=== PATIENT | female | born 1945 | race Caucasian/White ===

== ENCOUNTER 2016-10-05 01:02 | Inpatient (IN) ==
[2016-10-05] MEDS ORDERED: NS 1,000 ML IV ONE (01:09)
[2016-10-05] MEDS ORDERED: PROTONIX IV ONE (01:25)
[2016-10-05] MEDS ORDERED: SODIUM CHLORIDE 0.9% INJ ONE ×2 (01:25→13:01)
[2016-10-05 01:54] LABS: BASO% 0.7 % (0.0-0.8); EOS# 0.06 X1000 (0.0-0.7); HEMATOCRIT 26.8 % (37.0-47.0); HEMOGLOBIN 7.8 g/dL (12.0-16.0); LYMPH# 1.24 X1000 (1.2-3.4); LYMPH% 20.8 % (20.5-51.1); MANUAL DIFF NEEDED? NO; MCH 24.5 PG (27-31); MCHC 29.1 g/dL (33-37); MONO# 0.62 X1000 (0.11-0.59); MONO% 10.4 % (1.7-9.3); MPV 10.4 FL (7.4-10.4); NEUT% 67.1 % (42.2-75.2); PLT 525 X1000 (130-400); RBC 3.19 XMIL (4.2-5.4)
[2016-10-05 01:58] LABS: INR 1.05; PROTIME 11.1 Seconds (9.2-11.7)
--- NOTE | 2016-10-05 02:03 | PROVIDER DOCUMENTATION ---
This chart was entered by Zuleyma Vizcaino Scribe, acting as scribe for Tha Bertrand PA. HPI-Abdominal Pain/GI Problem - General Stated Complaint: lower gib Time Seen by Provider: 10/05/16 01:18 Source: patient, family, EMS Allergies/Adverse Reactions: Patient Allergies Allergy/AdvReac Type Severity Reaction Status Date / Time anti inflammatories AdvReac Unknown Uncoded 09/20/13 15:18 Home Medications: Home Medication List Medication Instructions Recorded Confirmed Last Taken Type Butalb/Acetaminophen/Caffeine 1 tab PO DAILY 09/20/13 09/20/13 09/20/13 07:00 History [Cczusa-Juwvjyyl-Rvgq 50-300-40] Carisoprodol 350 mg PO TID 09/20/13 09/20/13 09/20/13 07:00 History Clonazepam 0.5 mg PO TID 09/20/13 09/20/13 09/20/13 07:00 History Duloxetine HCl 60 mg PO DAILY 09/20/13 09/20/13 09/20/13 07:00 History Fluoxetine HCl 40 mg PO DAILY 09/20/13 09/20/13 09/20/13 07:00 History Frovatriptan [Frova] 1 tab PO DAILY 09/20/13 09/20/13 09/20/13 07:00 History Hydrocodone Bit/Acetaminophen 1 each PO PRN PRN 09/20/13 09/20/13 09/20/13 07: 00 History [Hydrocodon-Acetaminoph 7.5-325] Hydrocodone Bit/Acetaminophen 1 tab PO TID 09/20/13 09/20/13 09/20/13 07:00 History [Hydrocodon-Acetaminoph 7.5-325] Levothyroxine [Synthroid] 200 microgm PO DAILY 09/20/13 09/20/13 09/20/13 07:00 History Lidocaine 5% Patch [Lidoderm] 1 patch TD BID 09/20/13 09/20/13 09/20/13 07:00 History Lubiprostone [Amitiza] 8 mcg PO DAILY 09/20/13 09/20/13 09/20/13 07:00 History Meclizine HCl [Antivert] 25 mg PO TID 09/20/13 09/20/13 09/20/13 07:00 History Mirabegron [Myrbetriq] 50 mg PO DAILY 09/20/13 09/20/13 09/20/13 07:00 History [place]-3 Fatty Acids/Fish Oil 1 each PO DAILY 09/20/13 09/20/13 09/20/13 07:00 History [[place] 3 1,000 mg Softgel] Omeprazole [Prilosec] 20 mg PO DAILY@0700 09/20/13 09/20/13 09/20/13 07:00 History Promethazine [Phenergan] 25 mg PO Q6H PRN PRN 09/20/13 09/20/13 09/20/13 07:00 History Propranolol HCl 0 mg PO DAILY 09/20/13 09/20/13 09/20/13 07:00 History ROSUVAstatin [Crestor] 20 mg PO DAILY 09/20/13 09/20/13 09/20/13 07:00 History Trazodone HCl 150 mg PO QHS 09/20/13 09/20/13 09/19/13 22:00 History Zolpidem [Ambien] 1 tab PO DAILY 09/20/13 09/20/13 09/20/13 07:00 History - History of Present Illness-ABD Nature of Presenting Problems: 71 Y/O F Presents to ED with GI Bleed. Pt was renan in by EMS this evening with a pressure of 70/30 pale. Pt has a hx of intestinal bleeding, never had a hx of rectal bleeding. Pt was seen by 2 days ago for colonoscopy. Pt had a large cecal AVM and they elected to not treat outpatient referred to [facility] for surgery. Pt today began to pass bright red blood rectally and on arrival to ED had a B/P of 40/20 and unresponsive pt given 2 bags of fluid. Pt then upon reassessment was alert and able to talk. Abdominal Pain Onset Location: reports: generalized abdomen Pain Radiation: reports: no radiation Severity in ED: reports: severe Onset/Duration: reports: this evening Timing: reports: still present Activities at Onset: reports: light activity Dark Stools Present?: reports: bright red blood Rectal Bleeding: reports: bleeding without stool Review of Systems - Adult - REVIEW OF SYSTEMS - ADULT Constitutional: denies: chills, fever Eyes: reports: no symptoms reported Ears, Nose, Mouth & Throat: reports: no symptoms reported Cardiovascular: reports: no symptoms reported Respiratory: reports: no symptoms reported Gastrointestinal: reports: rectal bleeding. denies: diarrhea, nausea Genitourinary: reports: no symptoms reported Musculoskeletal: denies: bone pain, back pain Integumentary: reports: no symptoms reported Neurological: denies: dizziness/vertigo, headache/migraines Psychiatric: reports: no symptoms reported Endocrine: reports: no symptoms reported Hematologic/Lymphatic: reports: no symptoms reported Allergic/Immunologic: reports: no symptoms reported All Other Systems: Reviewed and Negative Past History - Adult - PAST MEDICAL HISTORY-ADULT Review of Records: reports: Old Records Reviewed, Nursing Assessment Review, Medications Reviewed, Social history reviewed & non-contributory. Cardiovascular: reports: hyperlipidemia Respiratory: reports: COPD Gastrointestinal: reports: GERD, GI bleed Musculoskeletal: reports: chronic pain (neck and back) Neurological: reports: CVA, headaches/migraines Endocrine/Immune: reports: thyroid disorder Other Conditions: reports: other (sleep apnea, fibromyalgia, colitis) - PRIOR SURGERIES/PROCEDURES Surgical/Procedure History: reports: appendectomy, hysterectomy, BTL - IMMUNIZATION STATUS Childhood Immunizations: See Nurse Assessment Flu Vaccine: See Nurse Assessment - FAMILY HISTORY Family History: reviewed, not pertinent Physical Exam-General - CONSTITUTIONAL General Appearance: severe distress, cachetic - EYES Eyes: pale conjunctivae - NECK Neck: non-tender - RESPIRATORY Respiratory: lungs clear - MUSCULOSKELETAL Extremity: non-tender - SKIN Integumentary: negative: normal color Progress - PLAN OF CARE/RESULTS Progress/Plan/Lab Results: Orders Category Date Time Status Saline Loc NOW Care 10/05/16 01:09 Active Transfuse .Give-Transfuse Care 10/05/16 01:18 Active CBC WITH ELECTRONIC DIFF [HEME] Stat Lab 10/05/16 01:09 Uncollected COMPREHENSIVE METABOLIC PANEL [CHEM] Stat Lab 10/05/16 01:09 Uncollected LRPC (RED CELLS) [BBK] Stat Lab 10/05/16 01:18 Uncollected MAGNESIUM [CHEM] Stat Lab 10/05/16 01:09 Uncollected PROTIME WITH INR [COAG] Stat Lab 10/05/16 01:09 Ordered PTT [COAG] Stat Lab 10/05/16 01:09 Ordered TYPE & SCREEN [BBK] Stat Lab 10/05/16 01:09 Uncollected 0.9% Sodium Chloride Inj [Ns] 1,000 ml Med 10/05/16 01:09 Active IV 999 mls/hr Pantoprazole [Protonix] Med 10/05/16 01:25 Discontinued 40 mg IV NOW ONE Sodium Chloride 0.9% Med 10/05/16 01:25 Discontinued 10 ml INJ NOW ONE Dr. Momin at bedside. Reviewed case and agrees c all orders and plan of care. Result Diagrams: 10/05/16 01:05 - CONSULTS/PCP/HOSPITALIST Notification #1 *Consult/PCP/Hospitalist*: Dr. Ktaty Sommer Discussed: 01:25 Consult Disposition: other (Give 4 units of emergency blood; call surgery) #2 Consult: Dr. Ag Sommer Discussed: 02:00 Consult Disposition: Will see in ED (Dr. Luong - give 2 units FFP, 1 unit plasm - he is on the way to ED) Departure - Departure Date of Disposition Decision: 10/05/16 Time of Disposition Decision: 02:04 DIAGNOSIS: GI bleed Qualifiers: GI bleed type/associated pathology: unspecified gastrointestinal hemorrhage type Qualified Code(s): K92.2 - Gastrointestinal hemorrhage, unspecified Disposition: ADMITTED INPATIENT 09 Certified Medical Emergency: Emergent Condition: Stable Referrals and Follow-Ups: None,PCP [Primary Care Provider] - - Critical Care Note This patient required my direct & personal management of CC.: Yes Total Time (mins): 60 (Emergency blood; GI bleed) Critical Care Statement: This patient required my direct personal management to treat or rule out processes, the absence of which, could potentiallly result in sudden, clinically significant life or limb threatening deterioration. Attestation - Physician/ CHRIS Attestation Patient care was provided by Advanced Practice Provider:: Yes Advanced Practice Provider:: Tha Bertrand Advanced Practice Provider documentation review:: The Mid-level provider documentation, treatment plan and medical decision making was reviewed by the physician who agrees with all treatment and medical decision making by the MLP. The physician spent face to face time with patient:: Yes Advanced Practice Provider documentation review:: The physician spent face to face time with this patient and agrees with all MLP documentation, treatment, and medical decision making by the MLP. See provider notes for further information. This chart was documented by the indicated scribe, (Zuleyma Vizcaino, Sagar) and accurately reflects the services I performed and decisions made by , Tha Bertrand PA, as attested by the provider's signature.
[2016-10-05] MEDS ORDERED: NS 500 ML ONE (02:21)
[2016-10-05 02:50] LABS: AGAP 15; ALBUMIN 3.4 g/dL (3.5-5.0); ALKALINE PHOSPHATASE 70 U/L (32-104); BUN 5 mg/dL (8-22); CALCIUM 8.3 mg/dL (8.8-10.2); CHLORIDE 97 mmol/L (98-107); COSMO 269; GOT 23 U/L (10-30); GPT 18 U/L (10-36); MAGNESIUM 1.8 mg/dL (1.5-2.7); POTASSIUM 4.2 mmol/L (3.5-5.1); SODIUM 134 mmol/L (136-145); TCO2 22 mmol/L (25-35); TOTAL BILIRUBIN 0.11 mg/dL (0.20-1.00); TOTAL PROTEIN 5.5 g/dL (6.3-8.3)
[2016-10-05] MEDS ORDERED: INVANZ 1 GM/NS 1 GM/50 ML IVPB IV ONE (03:01)
[2016-10-05] MEDS ORDERED: QUELICIN (DOSE) ONE (03:42)
[2016-10-05] MEDS ORDERED: NORCURON ONE (03:42)
[2016-10-05] MEDS ORDERED: XYLOCAINE-MPF 2% ONE (03:42)
[2016-10-05] MEDS ORDERED: SODIUM CHLORIDE 0.9% 30 ML ONE (03:42)
[2016-10-05] MEDS ORDERED: ROBINUL ONE ×2 (03:42→05:11)
[2016-10-05] MEDS ORDERED: DIPRIVAN 1% ONE (03:43)
[2016-10-05] MEDS ORDERED: FENTANYL ONE (03:43)
[2016-10-05] MEDS ORDERED: NEO-SYNEPHRINE ONE (03:46)
[2016-10-05 04:44] LABS: URINE CULTURE NEEDED? NO; URINE SOURCE CATH
[2016-10-05] MEDS ORDERED: OFIRMEV 1000 MG/ISOTONIC SOLN 1,000 MG/100 ML BOTTLE ONE (04:47)
[2016-10-05] MEDS ORDERED: EPHEDRINE ONE (04:51)
[2016-10-05 04:53] LABS: BILIRUBIN URINE NEGATIVE (NEGATIVE); BLOOD URINE NEGATIVE (NEGATIVE); COLOR YELLOW; GLUCOSE URINE NEGATIVE (NEGATIVE); LEUKOCYTES URINE NEGATIVE (NEGATIVE); NITRITE URINE NEGATIVE (NEGATIVE); PROTEIN URINE 70 mg/dL (NEGATIVE); SP GRAVITY URINE 1.015; TURBIDITY URINE CLEAR (CLEAR); UROBILINOGEN URINE NORMAL (NORMAL)
[2016-10-05 04:54] LABS: URINE MICRO REVIEW NEEDED? YES
[2016-10-05] MEDS ORDERED: ZOFRAN ONE (05:07)
[2016-10-05] MEDS ORDERED: NEOSTIGMINE ONE (05:10)
[2016-10-05 05:14] LABS: UR EPITHELIAL CELLS >10 /HPF (<10); URINE BACTERIA NEGATIVE /HPF; URINE RBC <10 /HPF (<10); URINE WBC <10 /HPF (<10)
[2016-10-05] MEDS: DILAUDID ONE ×2 (06:12→06:25)
[2016-10-05] MEDS ORDERED: DILAUDID ONE (06:37)
[2016-10-05] MEDS ORDERED: LR 1,000 ML ONE (06:40)
[2016-10-05] MEDS ORDERED: LR 1,000 ML IV ONE (07:24)
[2016-10-05] MEDS ORDERED: PROTONIX PO ONE (07:24)
--- NOTE | 2016-10-05 07:34 | OPERATIVE NOTE ---
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 POSTOPERATIVE DIAGNOSIS: Lower gastrointestinal bleed secondary to colon arteriovenous malformation. PROCEDURE PERFORMED: Exploratory laparotomy with right hemicolectomy. COMPLICATIONS: None. ESTIMATED BLOOD LOSS: 50 mL. SPECIMENS: Right colon. INDICATION: A 71-year-old female who has had a history of recurrent lower GI bleeds. She was scoped by Dr. Alaniz on Tuesday, that showed several cecal AVMs that were not amenable to endoscopic therapy. She was referred to [facility]. However, had a massive lower GI bleed today with hemodynamic instability and syncope, prompting her admission. She was transfused 4 units of blood and 3 units of FFP in the emergency department. OPERATIVE FINDINGS: There was an ulceration with some nodularity in the cecum. This likely corresponds to the AVM previously noted or possibly cautery artifact. There were no other colon or small bowel lesions. There was a cystic lesion of the right adnexa that did not appear to have any solid components and was not adherent to any other structures, and felt to be a benign ovarian cyst. Liver was normal. Gallbladder was normal. Appendix and uterus were surgically absent. No significant intraabdominal adhesions. OPERATIVE NOTE: Risks, benefits, and alternatives were discussed with the patient and her son. She consented to the procedure. She was taken to the operating room, placed in the supine position. General anesthesia was induced. All bony prominence were padded. Her abdomen was prepped with chlorhexidine solution, and draped in the usual fashion. Shaw catheter was already placed in the emergency department. We did place an orogastric tube. After her abdomen was prepped and draped, we made a time-out and confirmed the patient and the procedure. We made a midline incision, carried this down through the subcutaneous fat with electrocautery, and through the fascia. We elevated the posterior sheath and peritoneum with Kellys, and entered the abdomen in an open controlled fashion, protecting the underlying structures. We extended the incision both cephalad and inferiorly to gain wide exposure. We inspected the abdomen. There were the above-mentioned findings. We placed a Bookwalter self-retaining retractor, mobilized the right colon along the white line, up to and around the hepatic flexure. We did mobilize the greater omentum off the proximal transverse colon. After having widely mobilized the colon to protect the duodenum and the other retroperitoneal structures, including the ureter, during this, we selected a portion to divide the terminal ileum, and did this with a DARIAN blue load stapler. Then using the LigaSure device, we took the mesentery up to the planned distal transection point. This was distal to the hepatic flexure. We did ligate what appeared to be the right branch of the middle colic, but the middle colic was still intact and well perfused to the transverse colon. We transected the colon distally, and passed this off. At this point, we used the opportunity to inspect the retroperitoneum. Hemostasis was confirmed. We then created a [id number] functional end-to-end anastomosis with a DARIAN blue load 80 mm stapler. We removed the staple line corners, and along the tenia and the antimesenteric portion of the small bowel, we made a common enterotomy, and then closed this enterotomy after inspecting and confirming hemostasis of the staple line with a second firing of the DARIAN 80 completely closing this. We then imbricated the corners of the staple line. There was good bleeding noted on cutting of the small bowel and the colon, consistent with more perfused proximal and distal aspect of our anastomosis. We then closed the mesenteric defect with a running 3-0 Vicryl suture. We ensured there was no twisting of the small bowel again. We did this both before and after creating the anastomosis. We placed this back in the right lower quadrant, irrigated the abdomen, placed omentum over the anastomosis and underneath the fascia, and closed the fascia with #1 looped PDS, irrigated the superficial wound. We did protect the fascia and the wound with laps prior to making our enterotomies and colotomies, and there was no significant spillage of succus. We changed gloves prior to fascial closure. At the end, we irrigated the superficial wound, closed the skin loosely with clarence. Counts correct x2. A gauze and Medipore tape dressing was applied. We removed her NG tube, kept the Shaw. I spoke with the family. Plan to admit her to step-down. She was hemodynamically stable throughout the case, and did not require any pressors or further blood transfusion. Will check labs postoperatively, and transfuse as necessary. cc: MD JIMENEZ Garcia
[2016-10-05 08:12] LABS: BASO% 0.2 % (0.0-0.8); HEMATOCRIT 33.8 % (37.0-47.0); HEMOGLOBIN 10.7 g/dL (12.0-16.0); IMM GRAN# 0.02 X1000 (0.0-0.04); IMM GRAN% 0.2 % (0.0-0.5); LYMPH# 0.54 X1000 (1.2-3.4); LYMPH% 4.4 % (20.5-51.1); MANUAL DIFF NEEDED? NO; MCH 26.4 PG (27-31); MCHC 31.7 g/dL (33-37); MCV 83.5 FL (81-99); MONO# 0.57 X1000 (0.11-0.59); MONO% 4.6 % (1.7-9.3); NEUT% 90.6 % (42.2-75.2); PLT 375 X1000 (130-400); RBC 4.05 XMIL (4.2-5.4)
[2016-10-05 08:16] LABS: INR 1.03; PROTIME 10.8 Seconds (9.2-11.7)
[2016-10-05 08:17] LABS: AGAP 10; BUN 6 mg/dL (8-22); CALCIUM 7.3 mg/dL (8.8-10.2); CHLORIDE 102 mmol/L (98-107); COSMO 269; POTASSIUM 4.2 mmol/L (3.5-5.1); SODIUM 134 mmol/L (136-145); TCO2 22 mmol/L (25-35)
--- NOTE | 2016-10-05 08:38 | HISTORY AND PHYSICAL ---
DATE OF CONSULTATION: 10/05/2016 HISTORY OF PRESENT ILLNESS: This 71 year old female has had multiple medical issues. She presents with a massive lower GI bleed, syncope and hemodynamic instability. She was started on mass resuscitation protocol given 4 units of packed red blood cells in the Emergency Department with some improvement in her mental status, cerebral perfusion and hemodynamics. She states that she underwent a colonoscopy with Dr. Alaniz on Tuesday that showed large right colon and cecal AVM's that he felt were not amenable to endoscopic management at that point, but he had referred to [facility] where she had not had an appointment made as of yet. She was feeling okay on a liquid diet until this happened. She was brought by EMS to the emergency department where she was found to be hypotensive with systolics in 30s to 40s. She is getting 4 units of blood and systolics improved to 90s and her color improved. MEDICAL HISTORY: She has a history of a stroke with left-sided weakness, chronically uses a walker, and migraine headaches. She also has a history of anemia and osteopenia. SURGICAL HISTORY: She has had a hysterectomy and cervical spine operation. SOCIAL HISTORY: No tobacco, alcohol, or drugs. She is here with her son. FAMILY HISTORY: Negative for cancer. REVIEW OF SYSTEMS: Ten point negative except for what is mentioned in HPI. PHYSICAL EXAMINATION: Vital Signs: Temperature 97.7 degrees, pulse 63, blood pressures systolics in the 80s to 90s. Most recently was 95/48. Oxygen saturation is 100% on room air. General: She is alert in no acute distress. HEENT: There is no scleral icterus. Cardiovascular: Normal rate. Regular rhythm. Pulmonary: No increased work of breathing. Abdomen: Soft, nontender, and nondistended. Integument: Pale but warm and dry. There is no lower extremity edema. I do not see any jaundice. She is obese. Rectal: There are some external hemorrhoidal tags. I see no thrombosis or prolapsed hemorrhoids. There are no masses on digital rectal exam, and there is blood within the gluteal cleft but I do not see any active bleeding coming from the anus or distal rectum on exam at this location. LABORATORY: White count 5. Hematocrit 26, platelets 525,000. INR is 1.05. PTT is 25, creatinine 0.8. Sodium is 134, potassium 4.2, chloride is 97. CO2 22. Glucose 163. Albumin is 3.4. ASSESSMENT AND PLAN: A 71-year-old female with lower GI bleed related to cecal and right colon AVM's. I have talked to Dr. Alaniz and personally reviewed his endoscopy report. He says the remainder of her colon is clear, and that these are without a doubt the source of her bleeding. There was a small AVM in the stomach that he said was very small and completely managed with cauterization. A long discussion with patient and her son. I recommend a right colectomy to deal with this surgically. We will plan to go pending her resuscitation in the next little bit, urgent/emergent to the operating room for an open right hemicolectomy. Discussed the risks of bleeding, infection, anastomotic leak, possibility of colostomy and all other indicated procedures. In talking with Dr. Alaniz, he does not feel that any further endoscopic procedures are beneficial in this patient, and I agree with her instability and her now greater than 8 units of blood that she has required transfusions for. Right colon as indicated. In the meantime, we will admit to ICU. I have asked them to transfuse 3 units of FFP and another unit of platelets in anticipation of more transfusions. cc: Tracy Luong MD MTDD
[2016-10-05] MEDS: ZOFRAN IV PRN ×2 (09:28→12:54)
[2016-10-05] MEDS: ULTRAM PO PRN ×2 (09:28→15:32)
[2016-10-05] MEDS: PERIDEX MT SCH ×2 (09:28→20:24)
[2016-10-05] MEDS: MAG-OX PO SCH (09:32)
[2016-10-05] MEDS: SYNTHROID PO SCH (09:32)
[2016-10-05] MEDS: OFIRMEV 1000 MG/ISOTONIC SOLN 1,000 MG/100 ML BOTTLE IV SCH ×3 (10:53→22:34)
--- NOTE | 2016-10-05 13:57 | CONSULTATION ---
DATE OF CONSULTATION: 10/05/[address] Luong. REASON FOR CONSULTATION: Medical management. HISTORY OF PRESENT ILLNESS: Ms. Lissette Obrien is a 71-year-old, morbidly obese, female with a medical history of GI bleeds, GERD, colitis and AVMs in the stomach and large cecal colon who on 10/01/2016 had a colonoscopy performed by Dr. Alaniz. She was found to have a large cecal AVM and referred to [facility] for surgery. Around 8 p.m. last night she noticed she started having rectal bleeding. At midnight she started feeling cold and shivers. She has a Life Alert wrist bracelet that she alerted. She was brought to the ER with continued passing of bright red rectal blood. When she presented she was unresponsive. Her blood pressure was 38/20. The ER physician gave 2 L IV fluid bolus which improved her blood pressure. Her hemoglobin and hematocrit on admit was 7.8 and 26.8. At that time blood products were ordered and the ER physician consulted Dr. Alaniz, and Dr. Luong. Dr. Luong emergently went to the ER and took her for emergency right hemicolectomy. During this stay, patient has received multiple blood products since admit and surgery. She was transferred post surgery to the ICU. She is currently stable. Vital signs are stable. She is on 2 L nasal cannula. She does complain of a 7/10 mid abdominal pain that radiates to the right. The midline abdominal incision has a dressing on it with some mild shading of blood which appears to be dried. She states she is not passing gas yet at this time. She is currently sitting up in bed, about to start her clear liquid diet. PAST MEDICAL HISTORY: 1. Hyperlipidemia. 2. COPD. 3. Obstructive sleep apnea. 4. GERD. 5. Colitis. 6. Gastrointestinal bleed. 7. AVM in the large cecum and in the stomach. 8. Chronic pain syndrome of the neck and back. 9. Fibromyalgia. 10. CVA with left-sided mild residual weakness. 11. Migraines which she stated she used to have 4-5 per week is down to 1 or 2 per month. 12. Hypothyroidism. 13. Anemia. 14. Osteopenia. SURGICAL HISTORY: 1. 10/05/2016 now status post right hemicolectomy. 2. History of appendectomy. 3. Hysterectomy. 4. Bilateral tubal ligation. 5. Nose surgery. 6. Cervical spine fusion with anterior approach. SOCIAL HISTORY: She quit smoking in 2004 but prior to that she smoked less than 1 pack per day for 30 years. Denies alcohol or illicit drug use. She lives at home alone. FAMILY HISTORY: Positive for hypertension and multiple cancers including colon, prostate, ovarian, breast, cervical. REVIEW OF SYSTEMS: Fourteen point review of systems were complete and all were negative except for those mentioned above in the HPI. ALLERGIES: 1. Lansoprazole. 2. Sulfonamide antibiotics. 3. Tetracycline. 4. Anti-inflammatories. HOME MEDICATIONS: Have not been verified. She uses [facility] pharmacy in [place] and nursing staff is in the process of verifying her home medications. PHYSICAL EXAMINATION: Vital Signs: Temperature 97.3 degrees, heart rate 89, respiratory rate 19, blood pressure 150/92, O2 saturation 97% on 3 L nasal cannula. She is 5 feet 6 inches tall, 207 pounds with a BMI of 33.5. General: Ms. Lissette Obrien is a 71-year-old, morbidly obese, female. She is in no acute distress. She is able answer questions appropriately. HEENT: Atraumatic, normocephalic. Pupils equal, round, reactive to light. Extraocular movements intact. Mucous membranes are dry. Neck: No JVD or carotid bruits noted. Cardiovascular: S1, S2. Regular rate and rhythm. No rubs, gallops, or murmurs. Pulmonary: Clear to auscultate with bilateral breath sounds. No accessory muscle use or work of breathing noted. She is decreased in the bases. Currently tolerating 3 L nasal cannula. GI: Obese. Tender midline to right abdomen, upper and lower quadrant. Hypoactive bowel sounds in all 4 quadrants. Soft. Extremities: No edema noted. +2 dorsalis radial pulses. Neurologic: A and O x4. Follows commands. LABORATORY DATA: White blood cells 12,000, hemoglobin 10, hematocrit 33, platelet count 375,000, INR 1.03, PTT is 26.1, sodium 134, potassium 4.2, BUN 6, creatinine 0.6, glucose 156. Calcium 7.3, magnesium 1.8. Bilirubin 0.11, AST 23, ALT 18, albumin 3.4. Urinalysis 70, protein otherwise negative. IMAGING: None. ASSESSMENT AND PLAN: 1. Large cecal AVM causing lower gastrointestinal bleed now status post right hemicolectomy per Dr. Luong. Incision has small shading of oozing blood but is dry. Denies passing gas yet. She has started a clear liquid diet. She does complain of 7/10 on her abdominal pain scale. 2. Acute blood loss anemia with a history of anemia. She has received multiple blood products. Her last hemoglobin and hematocrit was 10 and 33, Dr. Alaniz wants blood transfusion of 2 units if hematocrit drops less than 25. She was hemodynamically unstable on admit secondary to her acute blood loss anemia but is now stable. 3. Gastroesophageal reflux disease, continue proton pump inhibitor. 4. Chronic obstructive pulmonary disease no exacerbation. Does not wear oxygen at home. Does not use medications at home. Quit smoking in 2004. 5. Obstructive sleep apnea. Does not wear CPAP at home. 6. Chronic pain syndrome of the neck and back with fibromyalgia. Currently pain medication regimen is IV Tylenol and oral Ultram. We will review home medications once they are verified. 7. Migraines. Again will review home medications once verified. 8. Hypothyroidism. Synthroid has been resumed. 9. History of cerebrovascular accident with left-sided weakness, stable. 10. Hyperlipidemia. 11. Deep venous thrombosis prophylaxis, sequential compression devices. Dictated by BAILEY Rivas for Dimitrios Rene MD cc: BAILEY Rivas MD
[2016-10-05] MEDS: PROTONIX IV SCH (14:23)
[2016-10-05] MEDS: MORPHINE IV PRN ×2 (17:33→20:21)
[2016-10-06] MEDS: MORPHINE IV PRN ×2 (01:06→20:22)
[2016-10-06] MEDS: OFIRMEV 1000 MG/ISOTONIC SOLN 1,000 MG/100 ML BOTTLE IV SCH (05:48)
--- NOTE | 2016-10-06 06:52 | CONSULTATION ---
DATE OF CONSULTATION: 10/05/2016 CONSULTING PHYSICIAN: Ronaldo Luong MD. PRIMARY CARE PHYSICIAN: Robinson Gutierrez MD. REASON FOR CONSULTATION: GI bleeding. HISTORY OF PRESENT ILLNESS: Ms. Obrien is a 71-year-old female who had recent GI bleeding in [place] about a month ago when she was noted to have a hemoglobin of 4 g. During that ER visit in [place] she was given 4 units of blood transfusion and was discharged home. She saw us subsequently as an outpatient. We performed EGD, colonoscopy on 2016. At that time we found a gastric AVM on the lesser curvature of the stomach which was cauterized. There were 3 AVMs in the right colon, 2 of them were moderate in size which were cauterized with APC. The third AVM was large in the ascending colon. We felt it was not amenable for endoscopic treatment in the outpatient setting. We had referred her to a tertiary care center like [facility] for further management. Our goal was that if it was causing recurrent bleeding then she may benefit from a colon resection. According to the patient, she was doing fine until Tuesday evening when she had a sudden urge to go to the restroom and then she passed bright red blood. She felt dizzy, weak and lost consciousness. Her blood pressure was low at 38/20. She was transferred through ambulance to the hospital. In the ER she was given 4 units of blood transfusion. Her hematocrit was 26.8. Dr. Luong and Neil were consulted by the ER physician. After discussion, Dr. Luong's plan was to take the patient to the OR for right hemicolectomy for ongoing massive GI bleeding. She had a right hemicolectomy this morning. Currently she is recovering from the surgery done this morning and she is in ICU bed 12. Since surgery she has been on a liquid diet. She complains of some abdominal pain and bloating. She also has some nausea. She denies any vomiting of blood. PAST MEDICAL HISTORY: 1. Hyperlipidemia. 2. COPD. 3. Obstructive sleep apnea. 4. GERD. 5. Anemia. 6. GI bleeding. 7. Chronic pain in the neck and back. 8. AVMs in the stomach and right colon. 9. Fibromyalgia. 10. History of CVA with left-sided mild residual weakness. 11. Migraines. 12. Hypothyroidism. 13. Anemia. 14. Osteopenia. PAST SURGICAL HISTORY: 1. Status post right hemicolectomy on 10/05/2016. 2. Appendectomy. 3. Hysterectomy. 4. Bilateral tubal ligation. 5. Nose surgery. 6. Cervical spine fusion with anterior approach. SOCIAL HISTORY: She quit smoking in 2004. Prior to that she smoked 1 pack a day for 30 years. She denies alcohol or illicit drug use. She lives at home alone. FAMILY HISTORY: Hypertension and multiple cancers including colon cancer, prostate cancer, ovarian cancer, breast and cervical cancer. REVIEW OF SYSTEMS: She denies any current fevers, rigors, chills, chest pain or shortness of breath at rest. Denies any genitourinary complaints. Does complain of feeling abdominal discomfort following surgery, and some nausea. She has been tolerating liquids. She denies any vomiting blood. She denies any neurologic complaints. ALLERGIES: 1. Lansoprazole. 2. Sulfonamides. 3. Tetracycline. 4. Anti-inflammatories. MEDICATIONS IN THE HOSPITAL: Reviewed. MEDICATIONS AT HOME: Also reviewed from the chart in an office report. She recently came off Plavix a month ago. MEDICATIONS IN THE HOSPITAL: 1. Chlorhexidine 15 mL mouthwash twice daily. 2. Synthroid 175 g daily. 3. Lactated Ring[place] 75 mL/h. 4. Magnesium oxide 4 mg daily. 5. Acetaminophen 1000 mg IV q.6 hours. 6. Zofran 4 mg every 6 hours. 7. Protonix 40 mg IV q.24 hours. 8. Tramadol 50 p.o. q.6 hours. 9. Morphine 2 mg IV q.3 hours as needed. DIET: She is currently on clear liquid diet. PHYSICAL EXAMINATION: Vital Signs: Temperature 97.8, pulse of 82, respiratory 17, blood pressure 155/60, saturating 90% on 2 L. Body weight of 207 pounds 6.4 ounces, BMI 33.5 kg. General: The patient is obese, lying in bed, in no acute distress. HEENT: Pale, without icterus. Pupils equal, reactive to light. Neck: Supple. Chest: Decreased Breath sounds at the bases. Abdomen: Surgical dressing in the abdomen, hypoactive bowel sounds, appropriately tender in the abdomen from recent surgery. Extremities: No cyanosis or clubbing. Neurologic: She is alert, awake, oriented. LABS: Hemoglobin and hematocrit is 10.7 and 33.8, white count of 12.36, platelet count of 375,000. MCV of 83.5, INR of 1.03, PT of 110.8, PT of 26.1. Sodium 130, potassium 4.2, chloride 102, bicarbonate 29, anion gap of 10, BUN of 6, creatinine 0.6, glucose of 100, calcium 7 3, magnesium 1.8. Total bilirubin is 0.11, AST 23, ALT 18, alkaline phosphatase 72 , total protein 5.5, albumin 3.4. Urinalysis showing positive protein. IMPRESSION AND PLAN: 1. Recurrent lower GI bleeding attributed to right colonic AVMs now status post right hemicolectomy performed by Dr. Luong. She is currently recovering well. She has been placed on a clear liquid diet. She has postoperative ileus. Dr. Luong is following. 2. Anemia. We will keep an eye on her hemoglobin and hematocrit. Her hematocrit is improved after transfusion of 4 units of blood transfusion. 3. GI prophylaxis with PPI. 4. Chronic obstructive pulmonary disease per the Primary Care team. 5. Bowel regimen to be restarted once she is passing flatus and if okay with the surgical team. 6. Further recommendations to follow pending hospital course. We greatly appreciate the help of the Surgical Team and Dr. Luong. The above plan was discussed with the patient and all questions were answered. cc: MD Tracy Banuelos MD Alexis R. Penot, MD Manish Arora, MD Cesar Garcia-Rodriguez, MD MTDD
[2016-10-06 06:55] LABS: MANUAL DIFF NEEDED? NO
[2016-10-06 06:59] LABS: BASO% 0.2 % (0.0-0.8); EOS# 0.03 X1000 (0.0-0.7); EOS% 0.3 % (0.0-10.0); HEMOGLOBIN 11.2 g/dL (12.0-16.0); IMM GRAN# 0.02 X1000 (0.0-0.04); IMM GRAN% 0.2 % (0.0-0.5); LYMPH# 0.79 X1000 (1.2-3.4); LYMPH% 7.3 % (20.5-51.1); MCH 26.5 PG (27-31); MCV 82.9 FL (81-99); MONO# 1.02 X1000 (0.11-0.59); MONO% 9.4 % (1.7-9.3); MPV 9.9 FL (7.4-10.4); NEUT% 82.6 % (42.2-75.2); PLT 384 X1000 (130-400); RBC 4.22 XMIL (4.2-5.4)
[2016-10-06] MEDS ORDERED: PROTONIX PO SCH (07:00)
[2016-10-06 07:13] LABS: INR 1.07; PROTIME 11.3 Seconds (9.2-11.7); PTT 27.8 Seconds (22.0-36.0)
[2016-10-06 07:14] LABS: HEMOGLOBIN A1C 5.3 % (4.8-6.0)
[2016-10-06 07:17] LABS: AGAP 8; ALBUMIN 3.3 g/dL (3.5-5.0); ALKALINE PHOSPHATASE 88 U/L (32-104); BUN 2 mg/dL (8-22); CALCIUM 8.5 mg/dL (8.8-10.2); CHLORIDE 98 mmol/L (98-107); COSMO 268; GOT 57 U/L (10-30); GPT 73 U/L (10-36); MAGNESIUM 1.5 mg/dL (1.5-2.7); POTASSIUM 3.7 mmol/L (3.5-5.1); SODIUM 135 mmol/L (136-145); TCO2 29 mmol/L (25-35); TOTAL BILIRUBIN 0.55 mg/dL (0.20-1.00); TOTAL PROTEIN 5.6 g/dL (6.3-8.3)
[2016-10-06] MEDS ORDERED: FIORICET PO PRN (07:51)
[2016-10-06] MEDS ORDERED: ANUSOL-HC CREAM PR ONE (08:15)
[2016-10-06] MEDS: DUONEB (A & A) INH SCH ×3 (08:44→20:00)
--- NOTE | 2016-10-06 08:48 | PROGRESS NOTE ---
DATE: 10/06/2016 SUBJECTIVE: The patient reports mild abdominal pain and also back pain. Denies any fever or chills. Patient reports is not able to pass any gas yet. OBJECTIVE: Vital Signs: Temperature 98.7, heart rate 85, respiratory rate 20, blood pressure 133/55, O2 saturation 98% on 2 L nasal cannula. General Examination: This is a 71-year-old, female lying in bed, in no acute distress. HEENT: Head is normocephalic, atraumatic. Anicteric sclerae and pale conjunctivae. Mucous membranes moist. Pupils equal, round, reactive to light and accommodation. Neck: Supple. No JVD noted. No carotid bruits. No lymphadenopathy. No thyromegaly. Cardiovascular: S1, S2 heard. No murmurs, gallops, or rubs. Regular rate and rhythm. Respiratory: Exam clear bilaterally to auscultation. No work of breathing or using accessory muscles. Abdomen: Soft, a little bit tender to palpation in the midline to the right abdomen with hypoactive bowel sounds. Extremities: No clubbing, cyanosis, or edema. Peripheral pulses present in both legs. Neurological: Patient alert and oriented x3. Able to move 4 extremities. Cranial nerves 2-12 grossly normal. LABORATORY DATA: White cell count 10.8, hemoglobin 11.2, hematocrit 35.0, platelets 384. BMP unremarkable. Calcium 8.5. ASSESSMENT AND PLAN: 1. 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 Dr. Luong from General surgery following this patient. The patient reported still some pain over the surgical wound. We will readjust doses of pain medications. 2. Anemia of acute blood loss. Patient has received multiple transfusions and the last hemoglobin is 11.2. That condition is stable. Dr. Alaniz from GI is following this patient. 3. Gastroesophageal reflux disease. We will continue with Protonix. 4. Chronic obstructive pulmonary disease. Patient is not in exacerbation but because she reports mild shortness of breath, and she reports that she used albuterol inhaler as needed, I prefer to start DuoNeb here 4 times per day and see how she does. 5. Obstructive sleep apnea. She is not using any CPAP at home. 6. Chronic pain syndrome/fibromyalgia. Her current medications either Tylenol or Ultram. She is receiving here Ultram and morphine, but she reports that the pain is not well controlled, so she requests for [place], so I am going to stop [place] and will start [place]. We will continue with morphine p.r.n. for pain. 7. Migraines. Patient is still having some migraines and she requests to have her own medication being giving here. We agreed. 8. Hypothyroidism, patient will continue with the same dose of Synthroid. 9. History of cerebrovascular accident with left-sided weakness, stable. 10. Hyperlipidemia, aware. I will continue with home medications. 11. Deep vein thrombosis prophylaxis with sequential compression device. cc: Dimitrios Rene MD
[2016-10-06] MEDS ORDERED: PROPRANOLOL HCL 120 MG PO SCH (09:00)
[2016-10-06] MEDS ORDERED: PREDNISONE PO SCH (09:00)
[2016-10-06] MEDS: NORCO-7.5 PO PRN ×2 (09:07→17:10)
[2016-10-06] MEDS: CYMBALTA PO SCH (09:07)
[2016-10-06] MEDS: KLONOPIN PO SCH ×2 (09:07→21:57)
[2016-10-06] MEDS: MAG-OX PO SCH (09:07)
[2016-10-06] MEDS: SYNTHROID PO SCH (09:07)
[2016-10-06] MEDS: FLONASE NAS SCH (09:08)
[2016-10-06] MEDS: PERIDEX MT SCH ×2 (09:10→21:57)
[2016-10-06] MEDS: DILAUDID ONE (09:16)
--- NOTE | 2016-10-06 10:04 | DISCHARGE SUMMARY ---
ADMISSION DATE: 10/05/2016 DISCHARGE DATE: SUBJECTIVE: She feels okay. She is having some pain, burping some, not really passing gas. OBJECTIVE: No fevers, no hemodynamic instability overnight. Vital Signs: Pulse has been in the 80s, blood pressure 148/91, O2 saturation 95% on 3 L. General: She is alert, in acute distress. There is some mild serosanguineous drainage on her dressing. Shaw is in place. She has had adequate urine output. Cardiovascular: Normal rate, regular rhythm. LABS: This morning white count is 10, hematocrit 35, platelets 384,000, INR is 1.07. Creatinine 0.5, glucose 136. ASSESSMENT AND PLAN: A 71-year-old female, status post right colectomy for acute lower GI bleed related to arteriovenous malformation. She is doing okay. Will move her out of the ICU today as her hematocrit and hemodynamics have been stable. D/C extra IV and will hold off on her prophylactic Lovenox at this point, but she is on SCDs, and will plan to start this tomorrow. She is not having any clinical signs of bleeding. The reason we are holding this is that came in with a massive GI bleed. Pain control is an issue. She has chronic pain, but I think it is reasonably controlled but she is on morphine and [place]. It is unclear why she takes steroids in this low- dose, but will hold off on this right now as she is not having any signs of adrenal insufficiency. Aggressive pulmonary toileting and Dr. Donnelly has ordered her nebs today and I agree with this, and as she has return of bowel function, we will begin advancing her diet. cc: MD Dimitrios Garcia MD [facility]
[2016-10-06] MEDS ORDERED: PATIENT'S OWN MED PO ONE (10:57)
[2016-10-06] MEDS: FIORICET PO PRN (11:07)
[2016-10-06] MEDS: PROTONIX IV SCH (14:09)
[2016-10-06] MEDS ORDERED: NORCO-7.5 PO PRN (18:47)
[2016-10-06] MEDS ORDERED: AMBIEN PO SCH (21:00)
[2016-10-07] MEDS: DUONEB (A & A) INH SCH ×4 (03:35→20:17)
[2016-10-07 08:52] LABS: BASO% 0.6 % (0.0-0.8); EOS# 0.06 X1000 (0.0-0.7); EOS% 0.5 % (0.0-10.0); HEMATOCRIT 39.1 % (37.0-47.0); HEMOGLOBIN 12.4 g/dL (12.0-16.0); IMM GRAN# 0.02 X1000 (0.0-0.04); IMM GRAN% 0.2 % (0.0-0.5); LYMPH# 0.96 X1000 (1.2-3.4); LYMPH% 7.6 % (20.5-51.1); MANUAL DIFF NEEDED? NO; MCH 27.1 PG (27-31); MCHC 31.7 g/dL (33-37); MCV 85.4 FL (81-99); MONO% 11.1 % (1.7-9.3); MPV 10.2 FL (7.4-10.4); PLT 427 X1000 (130-400); RBC 4.58 XMIL (4.2-5.4)
[2016-10-07 09:17] LABS: AGAP 14; BUN 4 mg/dL (8-22); CHLORIDE 94 mmol/L (98-107); COSMO 268; POTASSIUM 3.9 mmol/L (3.5-5.1); SODIUM 135 mmol/L (136-145); TCO2 27 mmol/L (25-35)
[2016-10-07] MEDS ORDERED: SODIUM CHLORIDE 0.9% 10 ML ONE (09:36)
[2016-10-07] MEDS: CYMBALTA PO SCH (09:42)
[2016-10-07] MEDS: ZOFRAN IV PRN (09:42)
[2016-10-07] MEDS: MAG-OX PO SCH (09:42)
[2016-10-07] MEDS: KLONOPIN PO SCH ×2 (09:42→20:47)
[2016-10-07] MEDS: FLONASE NAS SCH (09:42)
[2016-10-07] MEDS: PERIDEX MT SCH ×2 (09:42→20:47)
[2016-10-07] MEDS: SYNTHROID PO SCH (09:42)
[2016-10-07] MEDS: NORCO-10 PO PRN (10:16)
--- NOTE | 2016-10-07 11:00 | PROGRESS NOTE ---
DATE: 10/07/2016 SUBJECTIVE: Patient reports still complaining of back pain and also pain around the surgical area. The patient not able to pass any gas yet. OBJECTIVE: Vital Signs: Temperature 98.6 degrees, heart rate 91, respiratory rate 20, blood pressure 165/68, O2 saturation 98% on room air. General: This is a 71-year-old , female lying in bed in no acute distress. HEENT: Head is normocephalic and atraumatic. Anicteric sclerae and pale conjunctivae. Mucous membranes moist. Neck supple. No JVD noted. No carotid bruits. No lymphadenopathy. No thyromegaly. Cardiovascular: S1, S2 heard. No murmurs, gallops, or rubs. Regular rate and rhythm. Respiratory exam clear bilaterally to auscultation. Mild wheezing in both bases. Patient not using any accessory muscles or work of breathing. Abdomen is soft, a little bit tender to palpation in the midline of his right abdomen. Hypoactive bowel sounds but still present. No signs of peritoneal irritation. Extremities: No clubbing, cyanosis, or edema. Peripheral pulses present in both legs. Neurologic: Patient alert oriented x3. Able to move her extremities. Cranial nerves 2-12 grossly normal. LABORATORY DATA: White cell count 12.64, hemoglobin 12.4, hematocrit 39.1, platelets 427,000. BMP unremarkable. ASSESSMENT AND PLAN: 1. Large cecal AVM status post right hemicolectomy. Renal surgery following this patient. The patient is still complaining of pain around the surgical area. No signs of peritoneal irritation. We will readjust pain medications. 2. Anemia of acute blood loss. That condition is stable. Hemoglobin is 12.2 today. We will continue checking CBC daily. 3. Chronic obstructive pulmonary disease. Patient is not in any exacerbation but she reports mild shortness of breath yesterday, so we have started her on breathing treatments, and she reports feeling much better today. 4. Chronic pain syndrome/fibromyalgia. The patient is complaining of back pain related to her fibromyalgia. She reports that she was using [place] some. We have started the medication yesterday but she was getting 7.5 mg. We are going to increase to [place] 10 mg p.o. q.4 hours and we will go from there. 5. Gastroesophageal reflux disease. We will continue with Protonix. 6. Obstructive sleep apnea. Patient is not using any CPAP at home. 7. Migraines. Patient reports migraines are much better after she started taking her home medications. 8. Hypothyroidism. Patient will continue with the same doses of Synthroid. 9. History of cerebrovascular accident, aware. 10. Hyperlipidemia, aware. Will continue home medications. 11. Deep vein thrombosis prophylaxis with sequential compression devices. cc: Dimitrios Rene MD MTDD
[2016-10-07] MEDS: PROTONIX IV SCH (13:39)
--- NOTE | 2016-10-07 15:27 | PROGRESS NOTE ---
DATE: 10/07/2016 SUBJECTIVE: She feels well. She is burping, but not really having anything in the way of bowel function, but she is starting to feel some rumblings. She is comfortable on room air. She is sitting in the chair. She is reading newspaper. She is still tolerating clear liquids. I have encouraged her to go slow. OBJECTIVE: Vital Signs: Temperature is 98.6 degrees, pulse 91, blood pressure 165/68, oxygen saturation 95% on 3 L nasal cannula. General: She is alert, in no acute distress. Abdomen: Mildly distended. Appropriately tender with dressing in place. LABS: White count is 12, hematocrit is up to 39, platelets 427 and creatinine 0.5. ASSESSMENT AND PLAN: A 71-year-old female, status post right colectomy for acute lower gastrointestinal bleed related to arteriovenous malformation. She is doing well. We are awaiting return of bowel function. Will plan to advance her diet when she achieves this. She has chronic pain and pain control has been a bit of an issue, but she seems well controlled with [place] and morphine as needed. Given her stability of her hematocrits, I will resume her prophylactic Lovenox. We have been holding this given her acute lower gastrointestinal bleed and recent surgery for this, and she has been on sequential compression devices, but I think at this point we can start this and I will give her a dose today. cc: MD Dimitrios Garcia MD
[2016-10-07] MEDS: LOVENOX SUBQ SCH (16:18)
[2016-10-07] MEDS: AMBIEN PO SCH (20:47)
[2016-10-07 23:53] LABS: URINE MICRO REVIEW NEEDED? NO; URINE SOURCE CLEAN CATCH
[2016-10-07 23:58] LABS: BILIRUBIN URINE NEGATIVE (NEGATIVE); BLOOD URINE NEGATIVE (NEGATIVE); COLOR YELLOW; GLUCOSE URINE NEGATIVE (NEGATIVE); LEUKOCYTES URINE MODERATE (NEGATIVE); NITRITE URINE NEGATIVE (NEGATIVE); PH URINE 7.5; PROTEIN URINE TRACE mg/dL (NEGATIVE); SP GRAVITY URINE 1.011; TURBIDITY URINE CLEAR (CLEAR); UROBILINOGEN URINE NORMAL (NORMAL)
[2016-10-07 23:59] LABS: UR EPITHELIAL CELLS <10 /HPF (<10); URINE BACTERIA NEGATIVE /HPF; URINE RBC <10 /HPF (<10); URINE WBC TNTC /HPF (<10)
[2016-10-08] MEDS: NORCO-10 PO PRN ×2 (00:01→23:34)
[2016-10-08] MEDS: ZOFRAN IV PRN ×4 (03:32→21:09)
[2016-10-08] MEDS: MORPHINE IV PRN ×2 (03:32→16:04)
[2016-10-08] MEDS: ROCEPHIN 1 GM/NS 1 GM/50 ML IVPB IV SCH ×2 (03:34→04:27)
[2016-10-08] MEDS: DUONEB (A & A) INH SCH ×4 (03:39→20:09)
[2016-10-08 05:37] LABS: MANUAL DIFF NEEDED? NO
[2016-10-08 05:49] LABS: BASO% 0.2 % (0.0-0.8); EOS# 0.05 X1000 (0.0-0.7); EOS% 0.4 % (0.0-10.0); HEMATOCRIT 40.1 % (37.0-47.0); HEMOGLOBIN 12.8 g/dL (12.0-16.0); IMM GRAN# 0.02 X1000 (0.0-0.04); IMM GRAN% 0.2 % (0.0-0.5); LYMPH# 0.67 X1000 (1.2-3.4); LYMPH% 5.6 % (20.5-51.1); MCH 26.7 PG (27-31); MCHC 31.9 g/dL (33-37); MCV 83.5 FL (81-99); MONO# 1.08 X1000 (0.11-0.59); MPV 10.3 FL (7.4-10.4); NEUT% 84.6 % (42.2-75.2); PLT 508 X1000 (130-400)
[2016-10-08 06:09] LABS: AGAP 15; BUN 4 mg/dL (8-22); CALCIUM 9.6 mg/dL (8.8-10.2); CHLORIDE 93 mmol/L (98-107); COSMO 269; POTASSIUM 3.2 mmol/L (3.5-5.1); SODIUM 135 mmol/L (136-145); TCO2 27 mmol/L (25-35)
[2016-10-08] MEDS ORDERED: SODIUM CHLORIDE 0.9% 10 ML ONE (09:02)
[2016-10-08] MEDS: CYMBALTA PO SCH (09:19)
[2016-10-08] MEDS: SYNTHROID PO SCH (09:19)
[2016-10-08] MEDS: KLONOPIN PO SCH ×2 (09:20→21:10)
[2016-10-08] MEDS: PERIDEX MT SCH ×2 (09:20→21:10)
[2016-10-08] MEDS: MAG-OX PO SCH (09:20)
[2016-10-08] MEDS: POTASSIUM CHLORIDE 20 MEQ/SWI 20 MEQ/100 ML IVPB IV SCH ×2 (11:31→13:16)
[2016-10-08] MEDS: FLONASE NAS SCH (11:31)
--- NOTE | 2016-10-08 12:40 | PROGRESS NOTE ---
DATE: 10/08/2016 SUBJECTIVE: Patient reports that she has been vomiting a lot recently, like 2- 3 times. She gets Zofran that helped a lot. OBJECTIVE: Vital Signs: Temperature 98.8 degrees, heart rate 89, respiratory rate 18, blood pressure 186/87. O2 saturation 94% on room air. General Examination: This is a 71-year-old, female lying in bed in no acute distress. HEENT: Head is normocephalic, atraumatic. Anicteric sclerae and pale conjunctivae. Mucous membranes moist. Neck: Supple. No JVD noted. No carotid bruits. No lymphadenopathy. No thyromegaly. Cardiovascular: S1, S2 heard. No murmurs, gallops, or rubs. Regular rate and rhythm. Respiratory: Clear bilaterally to auscultation. No work of breathing or using accessory muscles. Abdomen: Distended but a little bit tender to palpation in the midline in the right abdomen. No bowel sounds today. No signs of peritoneal irritation. Extremities: No clubbing, cyanosis, or edema. Peripheral pulses present in both legs. Neurological: Patient alert oriented x3. Moves 4 extremities. LABORATORY DATA: White cell count 11.94, hemoglobin 12.8, hematocrit 40.1, platelets 508,000, BMP shows potassium 3.2. ASSESSMENT AND PLAN: 1. Large cecal AVM status post right high hemicolectomy. General surgery following this patient. 2. Anemia of acute blood loss. Condition is stable. Hemoglobin is 12.3 today. 3. Chronic obstructive pulmonary disease. Patient is not in any exacerbation but she has been started on some breathing treatments just in case she is short of breath. 4. Chronic pain syndrome, fibromyalgia. The patient is complaining of back pain , and unfortunately despite increasing the dose of [place] from 7.5 to 10, she is still hurting. Noted because the medication is not controlling the pain, but because she was not able to take any pills. At this point, we will continue with IV breakthrough pain medications. 5. Gastroesophageal reflux disease. Patient will continue with Protonix. 6. Obstructive sleep apnea. Patient is not using any CPAP at home. 7. Migraines resolved. 8. Hypothyroidism. Patient will continue with the same doses of Synthroid. 9. History of cerebrovascular accident aware. 10. Hyperlipidemia, aware. Will continue home medications. 11. Deep vein thrombosis prophylaxis because hemoglobin has been stable so far over the last 3 days. General surgery to restart prophylaxis with Lovenox. cc: Dimitrios Rene MD MTDD
[2016-10-08] MEDS: LR 1,000 ML IV SCH ×2 (13:15→23:29)
[2016-10-08] MEDS: PROTONIX IV SCH (13:21)
[2016-10-08] MEDS: LOVENOX SUBQ SCH (16:05)
[2016-10-08] MEDS: AMBIEN PO SCH (21:10)
[2016-10-09] MEDS: DUONEB (A & A) INH SCH ×4 (03:35→20:18)
[2016-10-09 05:23] LABS: MANUAL DIFF NEEDED? NO
[2016-10-09 05:25] LABS: BASO% 0.4 % (0.0-0.8); EOS% 1.4 % (0.0-10.0); HEMOGLOBIN 12.8 g/dL (12.0-16.0); LYMPH# 0.98 X1000 (1.2-3.4); MCH 26.6 PG (27-31); MCV 83.2 FL (81-99); MONO# 1.29 X1000 (0.11-0.59); MONO% 18.4 % (1.7-9.3); NEUT% 65.8 % (42.2-75.2); PLT 526 X1000 (130-400); RBC 4.81 XMIL (4.2-5.4)
[2016-10-09 05:40] LABS: AGAP 14; BUN 5 mg/dL (8-22); CALCIUM 8.9 mg/dL (8.8-10.2); CHLORIDE 95 mmol/L (98-107); COSMO 270; POTASSIUM 4.2 mmol/L (3.5-5.1); SODIUM 136 mmol/L (136-145); TCO2 27 mmol/L (25-35)
[2016-10-09] MEDS: SYNTHROID PO SCH (05:51)
[2016-10-09] MEDS: ROCEPHIN 1 GM/NS 1 GM/50 ML IVPB IV SCH (05:51)
[2016-10-09] MEDS: NORCO-10 PO PRN (05:53)
[2016-10-09] MEDS ORDERED: SODIUM CHLORIDE 0.9% 10 ML ONE (06:17)
[2016-10-09] MEDS: CYMBALTA PO SCH (10:04)
[2016-10-09] MEDS: LR 1,000 ML IV SCH ×2 (10:04→23:15)
[2016-10-09] MEDS: FLONASE NAS SCH (10:04)
[2016-10-09] MEDS: MAG-OX PO SCH (10:05)
[2016-10-09] MEDS: KLONOPIN PO SCH ×2 (10:05→23:15)
[2016-10-09] MEDS: PERIDEX MT SCH ×3 (10:05→23:17)
--- NOTE | 2016-10-09 11:54 | PROGRESS NOTE ---
DATE: 10/09/2016 SUBJECTIVE: Patient reports feeling fine. She is a little bit nauseated but she is not vomiting anymore. The pain is well controlled after she was able to take her pain med and a large bowel movement this morning. OBJECTIVE: Vital Signs: Temperature 98.1 degrees, heart rate 98, respiratory rate 18, blood pressure 178/71, O2 saturation 92% on room air. General Examination: This is a 71-year-old, female lying in bed, in no acute distress. HEENT: Head is normocephalic, atraumatic. Anicteric sclerae and pale conjunctivae. Mucous membranes moist. Neck: Supple. No JVD is noted. No carotid bruits. No lymphadenopathy. No thyromegaly. Cardiovascular : S1, S2 heard. No murmurs, gallops, or rubs. Regular rate and rhythm. Respiratory: Clear bilaterally to auscultation. No work of breathing or using accessory muscles. Abdomen: Soft. A little bit distended and tender to palpation in the midline in the right abdomen. Bowel sounds present. No signs of peritoneal irritation. Extremities: No clubbing, cyanosis, or edema. Peripheral pulses present both legs. Neurologic Exam: Patient alert and oriented x3. Moves 4 extremities. LABORATORY DATA: White cell count 7.02, hemoglobin 12.8, hematocrit 40. Platelets 526,000. BMP unremarkable. ASSESSMENT AND PLAN: 1. Large cecal AVM status post right hemicolectomy. General Surgery is following this patient. 2. Anemia of acute blood loss. That condition is stable and so far this way the last 3 days. 3. Chronic pain syndrome/fibromyalgia. Now this patient is feeling better after she was able to take care her usual pain pills. We will continue with the same management. 4. Gastroesophageal reflux disease. We will continue with Protonix. 5. Obstructive sleep apnea. Patient is not using CPAP at home. 6. Migraines. Resolved. 7. History of CVA. Aware. 8. Hypothyroidism. Will continue with the same doses of Synthroid. 9. Hyperlipidemia. We will continue with the same dose of statins. 10. Deep vein thrombosis prophylaxis. Patient is on Lovenox as per Dr. Luong recommendations. cc: Dimitrios Rene MD [facility]ENTER[facility]th
[2016-10-09] MEDS: PROTONIX IV SCH (13:01)
[2016-10-09] MEDS: LOVENOX SUBQ SCH (17:13)
[2016-10-09] MEDS: AMBIEN PO SCH (23:15)
[2016-10-10] MEDS: FIORICET PO PRN (00:28)
[2016-10-10] MEDS: LR 1,000 ML IV SCH (01:26)
[2016-10-10] MEDS: DUONEB (A & A) INH SCH ×4 (03:39→20:18)
[2016-10-10] MEDS: ROCEPHIN 1 GM/NS 1 GM/50 ML IVPB IV SCH (04:04)
[2016-10-10] MEDS: NORCO-10 PO PRN ×2 (04:08→12:53)
[2016-10-10 05:58] LABS: MANUAL DIFF NEEDED? NO
[2016-10-10 06:06] LABS: BASO% 0.3 % (0.0-0.8); EOS# 0.12 X1000 (0.0-0.7); EOS% 1.7 % (0.0-10.0); HEMATOCRIT 35.3 % (37.0-47.0); HEMOGLOBIN 11.2 g/dL (12.0-16.0); LYMPH% 15.3 % (20.5-51.1); MCH 26.7 PG (27-31); MCHC 31.7 g/dL (33-37); MONO# 0.87 X1000 (0.11-0.59); MONO% 12.1 % (1.7-9.3); MPV 10.4 FL (7.4-10.4); NEUT% 70.6 % (42.2-75.2); PLT 531 X1000 (130-400)
[2016-10-10 06:29] LABS: AGAP 16; BUN 3 mg/dL (8-22); CALCIUM 8.6 mg/dL (8.8-10.2); CHLORIDE 97 mmol/L (98-107); COSMO 274; POTASSIUM 3.5 mmol/L (3.5-5.1); SODIUM 139 mmol/L (136-145); TCO2 26 mmol/L (25-35)
[2016-10-10] MEDS ORDERED: LR 1,000 ML IV SCH (08:11)
[2016-10-10] MEDS ORDERED: SODIUM CHLORIDE 0.9% 0 ML ONE (08:14)
[2016-10-10] MEDS: MAG-OX PO SCH (09:00)
[2016-10-10] MEDS: PERIDEX MT SCH ×2 (09:00→21:58)
[2016-10-10] MEDS: KLONOPIN PO SCH ×2 (09:00→21:58)
[2016-10-10] MEDS: CYMBALTA PO SCH (09:00)
[2016-10-10] MEDS: FLONASE NAS SCH (09:00)
[2016-10-10] MEDS: SYNTHROID PO SCH (09:00)
[2016-10-10] MEDS ORDERED: SODIUM CHLORIDE 0.9% 10 ML ONE (10:59)
--- NOTE | 2016-10-10 12:05 | PROGRESS NOTE ---
DATE: 10/10/2016 SUBJECTIVE: Patient is feeling fine. No nausea. No vomiting. Patient is eating okay. Patient had a bowel movement yesterday and today. OBJECTIVE: Vital Signs: Temperature is 97.8 degrees, heart rate 82, respiratory rate 20, blood pressure 174/67, O2 saturation 95% on room air. General Examination: This is a 71-year-old female lying in bed, in no acute distress. HEENT: Head is normocephalic, atraumatic. Neck: Supple. No JVD noted. No carotid bruits. Cardiovascular: S1, S2 heard. No murmurs, gallops, or rubs. Regular rate and rhythm. Respiratory: Clear bilaterally to auscultation. No work of breathing or using accessory muscles. Abdomen: Soft. A little bit distended and tender to palpation around the midline abdomen. Bowel sounds present. No signs of peritoneal irritation. Extremities: No clubbing, cyanosis, or edema. Peripheral pulses present in both legs. Neurological: Patient is alert and oriented x3. Able to move 4 extremities. Cranial nerves 2 through 12 grossly normal. LABORATORY DATA: White cell count 7.18, hemoglobin 11.2, hematocrit 35.3, platelets 531,000. BMP completely unremarkable. ASSESSMENT AND PLAN: 1. 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 General surgery is following this patient. 2. Anemia of acute blood loss. Hemoglobin has been stable so far during the last 4 days. 3. Chronic pain syndrome secondary to fibromyalgia. After we may changes to her pain medications the patient reports feeling comfortable. 4. Gastroesophageal reflux disease. We will continue with Protonix. 5. Obstructive sleep apnea. Patient not using any CPAP at home. 6. Migraines, resolved. 7. History of cerebrovascular accident. Aware. 8. Hypothyroidism. Will continue home dose of Synthroid. 9. Hyperlipidemia. We will continue home dose of statin. 10. Deep vein thrombosis prophylaxis. Patient on Lovenox. 11. The patient is doing good. Overall. The patient is having bowel movements daily. Hemoglobin is stable so far, so we will talk with Dr. Luong tomorrow to see if she can be discharged tomorrow. cc: Dimitrios Rene MD
[2016-10-10] MEDS: PROTONIX IV SCH (12:43)
[2016-10-10] MEDS: LOVENOX SUBQ SCH (15:39)
[2016-10-10] MEDS: AMBIEN PO SCH (21:58)
[2016-10-11] MEDS: DUONEB (A & A) INH SCH ×2 (02:51→09:49)
[2016-10-11 05:43] LABS: MANUAL DIFF NEEDED? NO
[2016-10-11 05:58] LABS: BASO% 0.5 % (0.0-0.8); EOS# 0.13 X1000 (0.0-0.7); EOS% 1.8 % (0.0-10.0); HEMATOCRIT 36.7 % (37.0-47.0); HEMOGLOBIN 11.8 g/dL (12.0-16.0); LYMPH# 1.13 X1000 (1.2-3.4); LYMPH% 15.4 % (20.5-51.1); MCH 26.9 PG (27-31); MCHC 32.2 g/dL (33-37); MCV 83.8 FL (81-99); MONO# 0.86 X1000 (0.11-0.59); MONO% 11.7 % (1.7-9.3); MPV 9.9 FL (7.4-10.4); NEUT% 70.6 % (42.2-75.2); PLT 559 X1000 (130-400); RBC 4.38 XMIL (4.2-5.4)
[2016-10-11 06:16] LABS: AGAP 13; BUN 2 mg/dL (8-22); CALCIUM 8.8 mg/dL (8.8-10.2); CHLORIDE 100 mmol/L (98-107); COSMO 277; POTASSIUM 3.5 mmol/L (3.5-5.1); SODIUM 140 mmol/L (136-145); TCO2 27 mmol/L (25-35)
[2016-10-11] MEDS: ROCEPHIN 1 GM/NS 1 GM/50 ML IVPB IV SCH (06:27)
[2016-10-11] MEDS ORDERED: SODIUM CHLORIDE 0.9% 10 ML ONE (09:36)
[2016-10-11] MEDS: FLONASE NAS SCH (10:50)
[2016-10-11] MEDS: SYNTHROID PO SCH (10:51)
[2016-10-11] MEDS: MAG-OX PO SCH (10:51)
[2016-10-11] MEDS: CYMBALTA PO SCH (10:51)
[2016-10-11] MEDS: KLONOPIN PO SCH (10:51)
[2016-10-11] MEDS: PERIDEX MT SCH (10:51)
--- NOTE | 2016-10-11 11:17 | PROGRESS NOTE ---
DATE: 10/11/2016 SUBJECTIVE: Patient is feeling fine. No nausea, no vomiting. Patient is eating okay. She had a bowel movements yesterday, the day before. OBJECTIVE: Vital Signs: Temperature 99.3 degrees, heart rate 77, respiratory rate 18, blood pressure 159/72, O2 saturation 93% on room air. General Examination: This is a 71-year-old, female, lying in bed, in no acute distress. HEENT: Head is normocephalic and atraumatic. Anicteric sclerae and pale conjunctivae. Mucous membranes moist. Neck: Supple. No JVD noted. No carotid bruits. No lymphadenopathy. No thyromegaly. Cardiovascular Examination: S1 and S2 heard. No murmurs, gallops, or rubs. Regular rate and rhythm. Respiratory Examination: Clear bilaterally to auscultation. No work of breathing or using accessory muscles. Abdomen: Soft. A little bit distended. Mildly tender to palpation around the surgical wound. Bowel sounds present. No signs of peritoneal irritation. Extremities: No clubbing, cyanosis, or edema. Peripheral pulses present in both legs. Neurological Examination: Patient is alert and oriented x3. Able to move 4 extremities. Cranial nerves 2-12 grossly normal. Laboratory Data: White cell count 7.32, with hemoglobin 11.8, hematocrit 36.7, platelets 559,000. BMP unremarkable. ASSESSMENT AND PLAN: 1. Large cecal arteriovenous malformation, status post right hemicolectomy. General surgery is following. 2. Anemia of acute blood loss. Hemoglobin has been stable so far after surgery. 3. Chronic pain secondary to fibromyalgia. The patient is on [place] 10 every 6 hours as needed and that is controlling the pain very well. 4. Gastroesophageal reflux disease. We will continue with Protonix. 5. Obstructive sleep apnea. Patient is supposed to use a CPAP at home. 6. Migraines. That condition is resolved. 7. History of cerebrovascular accident, aware. 8. Hypothyroidism. We will continue with the same dose of Synthroid. 9. Hyperlipidemia. We will continue with the home doses of statin. 10. Deep vein thrombosis prophylaxis. Patient is on Lovenox. Patient is doing good. Patient was admitted for gastrointestinal bleeding secondary to arteriovenous malformations and she ended up having a right hemicolectomy. Now , she is feeling fine. Hemoglobin is so far stable since the patient had surgery. Physical therapy has been consulted many times but they have not seen this patient yet. My best guess is that this patient will need home health with physical therapy 3 times per week unless physical therapy recommends for this patient to go to rehab. In any case, the patient is stable from a medical standpoint and she can be discharged. Addendum: Talked with Dr. Luong. Patient will be discharged today. We appreciate the opportunity to participate in the care of this patient. cc: Dimitrios Rene MD MTDD
[2016-10-11 12:04] VITALS: BP 151/59
[2016-10-11] MEDS: PROTONIX IV SCH ×2 (13:28→13:36)
[2016-10-11] MEDS: NORCO-10 PO PRN (15:28)
[2016-10-11] MEDS: LOVENOX SUBQ SCH (15:29)
--- NOTE | 2016-10-11 22:51 | DISCHARGE SUMMARY ---
ADMISSION DATE: 10/05/2016 DISCHARGE DATE: 10/11/2016 HISTORY OF PRESENT ILLNESS: This is a 71-year-old female patient of Dr. 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 She presented emergently to the emergency department with acute hemorrhagic shock. She was resuscitated and taken to the operating room for right colectomy. Disease had been localized 3 days previously. HOSPITAL COURSE: She was seen in the emergency department after initial resuscitation, was taken to the operating room emergently. For details, please see dictated operative note. Postoperatively, she was admitted initially to the ICU for observation. Hematocrit remained stable and her hemodynamics did as well and she was moved to the floor, where her diet was advanced, per the ERAS protocol. Physical therapy was consulted and she was able to ambulate. She voided after her Shaw was removed. She required no further transfusions. On the day of her discharge, she was tolerating a soft diet with normal bowel function. No fevers and her pain was controlled without any pain medication and was felt safe for discharge home. PHYSICAL EXAMINATION: On day of her discharge, she was afebrile. Temperature is 99.3 degrees, pulse 77, blood pressure 159/72, O2 saturation 93% on room air. Abdomen was soft, appropriately tender and included intact midline incision with no erythema. LABS ON THE DAY OF HER ADMISSION: CBC: Hematocrit 36, white count 7, platelets 559,000, creatinine 0.4. Glucose: 120. DISPOSITION: Home with self care under the care of her family. DISCHARGE MEDICATIONS: Per her previous home medications. DIET: I have recommended a low residual GI soft diet. PHYSICAL ACTIVITY: As tolerated, avoiding heavy lifting greater than 10 pounds. DISCHARGE INSTRUCTIONS: She was given detailed postoperative instructions. She will call with fevers, redness, or wound drainage, worsening abdominal pain, nausea, vomiting, or change in her bowel habits. I have encouraged her to add some fiber to her diet and drink plenty of water and Ensure supplements and she will return in 1-2 weeks for staple removal. cc: MD Dimitrios Garcia MD [facility]
== END 2016-10-11 15:31 | disposition home health service (06) ==
LOC: ED 01:02 → ICU 07:15 → SUPCPDRO 07:15 → 4N 10-06 18:44
PROVIDERS: ADMIT Internal Medicine; ATTEND Surgery

== ENCOUNTER 2016-10-25 15:25 | Inpatient (IN) ==
[2016-10-25] MEDS ORDERED: DILAUDID IV ONE ×2 (16:35→18:36)
[2016-10-25 16:49] LABS: MANUAL DIFF NEEDED? NO
[2016-10-25 16:52] LABS: BASO% 0.1 % (0.0-0.8); EOS# 0.05 X1000 (0.0-0.7); EOS% 0.3 % (0.0-10.0); HEMATOCRIT 38.8 % (37.0-47.0); HEMOGLOBIN 12.5 g/dL (12.0-16.0); IMM GRAN# 0.03 X1000 (0.0-0.04); IMM GRAN% 0.2 % (0.0-0.5); LYMPH# 0.86 X1000 (1.2-3.4); LYMPH% 5.9 % (20.5-51.1); MCH 27.4 PG (27-31); MCHC 32.2 g/dL (33-37); MCV 85.1 FL (81-99); MONO# 1.39 X1000 (0.11-0.59); MONO% 9.5 % (1.7-9.3); MPV 10.6 FL (7.4-10.4); PLT 467 X1000 (130-400); RBC 4.56 XMIL (4.2-5.4)
[2016-10-25] MEDS ORDERED: DILAUDID ONE (16:54)
[2016-10-25 17:08] LABS: AGAP 13; ALKALINE PHOSPHATASE 119 U/L (32-104); AMYLASE 29 U/L (20-200); BUN 11 mg/dL (8-22); CALCIUM 9.3 mg/dL (8.8-10.2); CHLORIDE 96 mmol/L (98-107); COSMO 270; GOT 24 U/L (10-30); GPT 40 U/L (10-36); LIPASE 31 U/L (13-60); POTASSIUM 4.2 mmol/L (3.5-5.1); SODIUM 135 mmol/L (136-145); TCO2 26 mmol/L (25-35); TOTAL BILIRUBIN 0.42 mg/dL (0.20-1.00); TOTAL PROTEIN 6.4 g/dL (6.3-8.3)
[2016-10-25 17:35] LABS: URINE CULTURE NEEDED? NO; URINE MICRO REVIEW NEEDED? NO; URINE SOURCE CATH
[2016-10-25 17:38] LABS: BILIRUBIN URINE SMALL (NEGATIVE); BLOOD URINE NEGATIVE (NEGATIVE); COLOR YELLOW; GLUCOSE URINE NEGATIVE (NEGATIVE); LEUKOCYTES URINE NEGATIVE (NEGATIVE); NITRITE URINE NEGATIVE (NEGATIVE); PH URINE 6.5; PROTEIN URINE 100 mg/dL (NEGATIVE); SP GRAVITY URINE 1.036; TURBIDITY URINE CLEAR (CLEAR); UR EPITHELIAL CELLS <10 /HPF (<10); URINE BACTERIA NEGATIVE /HPF; URINE RBC <10 /HPF (<10); URINE WBC <10 /HPF (<10); UROBILINOGEN URINE 3 mg/dL (NORMAL)
--- NOTE | 2016-10-25 17:57 | PROVIDER DOCUMENTATION ---
This chart was entered by Marquez Smtih Scribe, acting as scribe for Vincenzo Ha MD. HPI-Abdominal Pain/GI Problem - General Source: patient - History of Present Illness-ABD Nature of Presenting Problems: patient is a 71 y/o F that presents to the Er with abdominal pain. patient was in a chair putting books in a box when the pain hit her more on her right side. Since she has had worsening pain. No n/v/d, fever/chills, or dysuria. Recent colon resection beginning of this month Abdominal Pain Onset Location: reports: RUQ, RLQ Quality of Pain: reports: cramping, sharp Severity in ED: reports: moderate Onset/Duration: reports: abrupt, 2 days ago Timing: reports: still present, constant Activities at Onset: reports: moderate activity (bent down to lift a box) Exposure to sick contacts?: No Modifying Factors: worse with: movement Associated Symptoms: denies: back/neck pain, diarrhea, fever/chills, genitourinary problems, nausea, vomiting Rectal Bleeding: reports: none Emesis Description: reports: none Similar Symptoms Previously?: No Recently seen or treated by another doctor?: Yes <Vincenzo Ha - Last Filed: 10/25/16 17:57> - General Source: patient <JossieKevin VallejoMerritt - Last Filed: 10/25/16 18:43> - General Chief Complaint: Post Op Complaint Stated Complaint: rt sided abd px (post colon resection-Dr. Luong) Time Seen by Provider: 10/25/16 16:17 Allergies/Adverse Reactions: Patient Allergies Allergy/AdvReac Type Severity Reaction Status Date / Time lansoprazole [From Prevacid] Allergy ITCHING Verified 10/05/16 03:17 Sulfa (Sulfonamide Allergy ITCHING Verified 10/05/16 03:17 Antibiotics) tetracycline Allergy ITCHING Verified 10/05/16 03:17 anti inflammatories AdvReac Unknown Uncoded 09/20/13 15:18 Home Medications: Home Medication List Medication Instructions Recorded Confirmed Last Taken Type Butalb/Acetaminophen/Caffeine 1 tab PO PRN PRN 09/20/13 10/25/16 09/20/13 07:00 History [Rbnzdu-Xlclqzkl-Xbyv 50-300-40] Carisoprodol 350 mg PO TID 09/20/13 10/25/16 09/20/13 07:00 History Clonazepam 0.5 mg PO TID 09/20/13 10/25/16 10/04/16 History Duloxetine HCl 30 mg PO DAILY 09/20/13 10/25/16 09/20/13 07:00 History Hydrocodone Bit/Acetaminophen 1 each PO PRN PRN 09/20/13 10/25/16 10/25/16 11: 00 History [Hydrocodon-Acetaminoph 7.5-325] Omeprazole [Prilosec] 40 mg PO DAILY@0700 09/20/13 10/25/16 10/25/16 11:00 History Zolpidem [Ambien] 1 tab PO HS 09/20/13 10/25/16 09/20/13 07:00 History Fluticasone 50 Mcg Nasal [place] 1 - 2 sprays CATRINA DAILY 10/05/16 10/25/16 Unknown History [Flonase] Levothyroxine [Synthroid] 175 microgm PO DAILY 10/05/16 10/25/16 10/04/16 History Prednisone 10 mg PO DAILY 10/05/16 10/25/16 Unknown History Primdione 50 mg PO 4XDAY 10/05/16 10/25/16 Unknown History Sucralfate [Carafate] 1 gm PO 4XDAY 10/05/16 10/25/16 Unknown History Review of Systems - Adult - REVIEW OF SYSTEMS - ADULT Constitutional: denies: chills, fever Eyes: reports: no symptoms reported Ears, Nose, Mouth & Throat: denies: ear discharge, epistaxis, sinus problem Cardiovascular: denies: chest pain, palpitations, syncope Respiratory: denies: cough, shortness of breath, wheezing Gastrointestinal: reports: abdominal pain. denies: hematemesis, diarrhea, nausea, rectal bleeding, vomiting Genitourinary: denies: dysuria, frequency, hematuria Musculoskeletal: denies: bone pain, joint pain, neck pain Integumentary: reports: no symptoms reported Neurological: reports: no symptoms reported Psychiatric: reports: no symptoms reported Endocrine: reports: no symptoms reported Hematologic/Lymphatic: reports: no symptoms reported Allergic/Immunologic: reports: no symptoms reported All Other Systems: Reviewed and Negative <Vincenzo Ha - Last Filed: 10/25/16 17:57> - REVIEW OF SYSTEMS - ADULT Constitutional: reports: chills, fever <Kevin Sethi - Last Filed: 10/25/16 18:43> Past History - Adult - PAST MEDICAL HISTORY-ADULT Review of Records: reports: Old Records Reviewed, Nursing Assessment Review, Medications Reviewed Cardiovascular: reports: HTN, hyperlipidemia Respiratory: reports: COPD Gastrointestinal: reports: GERD, GI bleed Musculoskeletal: reports: chronic pain (neck and back), fibromyalgia Neurological: reports: CVA, headaches/migraines Endocrine/Immune: reports: thyroid disorder Other Conditions: reports: other (sleep apnea, fibromyalgia, colitis) - PRIOR SURGERIES/PROCEDURES Surgical/Procedure History: reports: recent surgery (10/05/2016 colon resection), appendectomy, hysterectomy, BTL - IMMUNIZATION STATUS Childhood Immunizations: See Nurse Assessment Flu Vaccine: See Nurse Assessment - FAMILY HISTORY Family History: reviewed, not pertinent - SOCIAL HISTORY Smoking: quit greater than 1 year, cigarettes Substance Use: none/never Alcohol Use Frequency: never Living Situation: family <Vincenzo Ha - Last Filed: 10/25/16 17:57> - PAST MEDICAL HISTORY-ADULT Review of Records: reports: Old Records Reviewed, Nursing Assessment Review, Medications Reviewed, Social history reviewed & non-contributory. <Kevin Sethi - Last Filed: 10/25/16 18:43> Physical Exam-General - PHYSICAL EXAM-ADULT Initial Vital Signs Reviewed: Yes - CONSTITUTIONAL General Appearance: alert, mild distress - EYES Eyes: PERRL/EOMI, pink conjunctivae - HEAD, EARS, NOSE, MOUTH & THROAT HENMT: normocephalic/atraumatic, moist mucous membranes, normal ENT inspection - NECK Neck: non-tender, full range of motion, normal inspection - RESPIRATORY Respiratory: lungs clear, normal breath sounds, no respiratory distress, no accessory muscle use - CARDIOVASCULAR Cardiovascular: regular rate, rhythm, no edema, no murmur - GASTROINTESTINAL (ABDOMEN) Abdominal Exam: no organomegaly, no pulsatile mass, rebound, tenderness ( diffusely but worse on the RUQ and RLQ), other (healing surgical scar to abdomen ) - MUSCULOSKELETAL Extremity: normal range of motion, normal inspection, no pedal edema, normal capillary refill - SKIN Integumentary: normal color, warm/dry - NEUROLOGIC Neurologic: senior data architect II-XII nml as tested, no motor/sensory deficits - PSYCHIATRIC Psych/Mental Status: normal mood/affect, normal thought content, normal thought process, oriented x 3 <Vincenzo Ha - Last Filed: 10/25/16 17:57> - PHYSICAL EXAM-ADULT Initial Vital Signs Reviewed: Yes - CONSTITUTIONAL General Appearance: alert, mild distress <Kevin Sethi - Last Filed: 10/25/16 18:43> Progress - PLAN OF CARE/RESULTS Progress/Plan/Lab Results: Vital Signs - 8 hr 10/25/16 15:29 10/25/16 15:53 Temperature 97.5 F L Pulse Rate 91 H 88 Respiratory Rate 16 17 Blood Pressure 117/59 103/65 O2 Sat by Pulse Oximetry 91 L 90 L Orders Category Date Time Status Saline Loc DIRECTED Care 10/25/16 16:10 Active NPO Diet 10/25/16 16:[address] ABD/PELVIS W/ IV CONT ONLY [CT] Stat Exams 10/25/16 16:12 Ordered AMYLASE [CHEM] Stat Lab 10/25/16 16:10 Uncollected CBC WITH ELECTRONIC DIFF [HEME] Stat Lab 10/25/16 16:10 Uncollected COMPREHENSIVE METABOLIC PANEL [CHEM] Stat Lab 10/25/16 16:10 Uncollected LIPASE [CHEM] Stat Lab 10/25/16 16:10 Uncollected URINALYSIS W/POSS RFLX CULT-1 [URINALYSIS] Stat Lab 10/25/16 16:10 Uncollected Result Diagrams: 10/25/16 16:31 10/25/16 16:31 - CHANGE OF SHIFT REPORT (ED Provider) Report Given and Care Transferred to:: Time of Transfer: 17:51 Items Pending: Labs, CT/MRI Results <Vincenzo Ha - Last Filed: 10/25/16 17:57> - PLAN OF CARE/RESULTS Progress/Plan/Lab Results: Vital Signs - 8 hr 10/25/16 15:29 10/25/16 15:53 10/25/16 17:10 Temperature 97.5 F L Pulse Rate 91 H 88 86 Respiratory Rate 16 17 20 Blood Pressure 117/59 103/65 127/70 O2 Sat by Pulse Oximetry 91 L 90 L 92 L 10/25/16 18:23 Temperature Pulse Rate 91 H Respiratory Rate 22 Blood Pressure 126/70 O2 Sat by Pulse Oximetry 92 L Laboratory Results - last 24 hr 10/25/16 10/25/16 10/25/16 16:31 16:31 17:26 WBC 14.65 H RBC 4.56 Hgb 12.5 Hct 38.8 MCV 85.1 MCH 27.4 MCHC 32.2 L RDW Std Deviation 20.7 H Plt Count 467 H MPV 10.6 H Immature Gran % (Auto) 0.2 Neut % (Auto) 84.0 H Lymph % (Auto) 5.9 L Todd % (Auto) 9.5 H Eos % (Auto) 0.3 Baso % (Auto) 0.1 Immature Gran # (Auto) 0.03 Neut # (Auto) 12.30 H Lymph # (Auto) 0.86 L Todd # (Auto) 1.39 H Eos # (Auto) 0.05 Baso # (Auto) 0.02 Sodium 135 L Potassium 4.2 Chloride 96 L Carbon Dioxide 26 Anion Gap 13 BUN 11 Creatinine 0.7 Estimated GFR/1.73 m2 > 60 BUN/Creatinine Ratio 16 Glucose 103 Calculated Osmolality 270 Calcium 9.3 Total Bilirubin 0.42 AST 24 ALT 40 H Alkaline Phosphatase 119 H Total Protein 6.4 Albumin 4.0 Globulin 2.4 Albumin/Globulin Ratio 1.7 Amylase 29 Lipase 31 Urine Source CATH Urine Color YELLOW Urine Turbidity CLEAR Urine pH 6.5 Ur Specific [place] 1.036 Urine Protein 100 A Ur Glucose (Stick) NEGATIVE Ur Ketones (Stick) NEGATIVE Urine Blood NEGATIVE Urine Nitrite NEGATIVE Urine Bilirubin SMALL A Urobilinogen Dipstick 3 A Urine Leukocytes NEGATIVE Urine WBC (Auto) <10 Urine RBC (Auto) <10 U Epithel Cells (Auto) <10 Urine Bacteria (Auto) NEGATIVE Orders Category Date Time Status Shaw Care ROUTINE Care 10/25/16 17:12 Active Saline Loc DIRECTED Care 10/25/16 16:10 Active NPO Diet 10/25/16 16:[address] ABD/PELVIS W/ IV CONT ONLY [CT] Stat Exams 10/25/16 16:12 Completed AMYLASE [CHEM] Stat Lab 10/25/16 16:31 Completed CBC WITH ELECTRONIC DIFF [HEME] Stat Lab 10/25/16 16:31 Completed COMPREHENSIVE METABOLIC PANEL [CHEM] Stat Lab 10/25/16 16:31 Completed LIPASE [CHEM] Stat Lab 10/25/16 16:31 Completed URINALYSIS W/POSS RFLX CULT-1 [URINALYSIS] Stat Lab 10/25/16 17:26 Completed Hydromorphone [Dilaudid] Med 10/25/16 16:35 Discontinued 1 mg IV NOW ONE Hydromorphone [Dilaudid] Med 10/25/16 18:36 Discontinued 1 mg IV NOW ONE Hydromorphone [Dilaudid] Med 10/25/16 16:54 Discontinued 2 mg .ROUTE .STK-MED ONE Ondansetron [Zofran] Med 10/25/16 18:37 Discontinued 4 mg IV NOW ONE Result Diagrams: 10/25/16 16:31 10/25/16 16:31 - CT/MRI 1 CT Study: Abdomen Impression: Abnormal (inflammatory changes about recent cecal resection without free air. Also 5x8cm right ovarian cyst which had been seen on early scans) - CONSULTS/PCP/HOSPITALIST Notification #1 *Consult/PCP/Hospitalist*: Dr Perales Time Discussed: 18:42 Consult Disposition: Will see in ED <Kevin Sethi - Last Filed: 10/25/16 18:43> Departure <Vincenzo Ha - Last Filed: 10/25/16 17:57> - Departure Date of Disposition Decision: 10/25/16 Time of Disposition Decision: 18:42 Certified Medical Emergency: Emergent - Critical Care Note This patient required my direct & personal management of CC.: No <Kevin Sethi - Last Filed: 10/25/16 18:43> - Departure DIAGNOSIS: RLQ abdominal pain Disposition: ADMITTED INPATIENT 09 Condition: Fair Referrals and Follow-Ups: Robinson Gutierrez [Primary Care Provider] - Attestation - Physician/ CHRIS Attestation Patient care was provided by Advanced Practice Provider:: No The physician spent face to face time with patient:: Yes Advanced Practice Provider documentation review:: Supervising physician onsite and consulted in the evaluation and care of this patient. The physician did have a face to face encounter with the patient. <Kevin Sethi - Last Filed: 10/25/16 18:43> This chart was documented by the indicated rey (Marquez Smith, Scribe) and accurately reflects the services I performed and decisions made by me, Vincenzo Ha MD, as attested by the provider's signature.
--- NOTE | 2016-10-25 18:00 | Diag Imaging Result Doc PS360 ---
EXAM: CT ABD/PELVIS W/ IV CONT ONLY HISTORY: abd pain TECHNIQUE: CT abdomen and pelvis. Dose reduction protocol. COMPARISON: None. FINDINGS: There is fatty infiltration of the liver. No focal hepatic abnormality. The gallbladder is distended. No calcified stones. Normal spleen, pancreas, adrenal glands, and kidneys. No hydronephrosis. No aortic aneurysm. The cecum apparently has been removed. Surgical clips about the proximal ascending colon. There are adjacent inflammatory changes and there is a small amount of fluid in the right paracolic gutter. Feculent material is found in the terminal ileum. No free air. No abscess. A Shaw catheter has the urinary bladder decompressed. The uterus has been removed. There is a large right adnexal cyst measuring at least 5.1 x 7.9 cm. The appears to be a single internal septation. IMPRESSION: 1.Recent proximal colon resection with prominent feculent material within the terminal ileum, but no definite obstruction. 2.Fatty infiltration of the liver 3.Large right ovarian cyst 4.Hysterectomy Electronically signed by Kit Torres 10/25/2016 5:58 PM
[2016-10-25] MEDS ORDERED: ZOFRAN IV ONE (18:37)
[2016-10-25] MEDS ORDERED: SODIUM CHLORIDE 0.9% INJ PRN (20:54)
[2016-10-25] MEDS ORDERED: PHENERGAN IV PRN (20:54)
[2016-10-25] MEDS ORDERED: D5 1/2 NS + KCL 20 MEQ 1,000 ML IV SCH (21:00)
--- NOTE | 2016-10-25 21:12 | HISTORY AND PHYSICAL ---
HISTORY OF PRESENT ILLNESS: Ms. Lissette Obrien is a 71-year-old white female patient Dr. Ronaldo Luong. On 10/05/2016 she underwent a right hemicolectomy per Dr. Luong for a massive lower GI bleed secondary to AV malformations. She has been followed in our outpatient office since her surgery. She was seen last Tuesday. However last week she began experiencing right lower quadrant pain which had worsened. She called our office today and spoke with Mignon our telephone attendant about her pain. She presented to the ER by ambulance with right lower quadrant pain. I was asked to evaluate her. MEDICATIONS: Lorcet Plus, Duloxetine, clonazepam, carisoprodol, propranolol, Prilosec Ambien, Primidone, Plavix, Flonase spray, Synthroid, Carafate and 10 mg of prednisone. ALLERGIES: Sulfa. SOCIAL HISTORY: She lives at home. She does have family nearby. She does not smoke. REVIEW OF SYSTEMS: A 14-point review of systems was performed and except for the history of present illness is essentially negative. FAMILY HISTORY: Noncontributory. PHYSICAL EXAM: VITAL SIGNS: On exam her temperature is 97.5 degrees, heart rate is 89, blood pressure 135/76, O2 saturation 93%. She is 181 pounds, 5 feet 6 inches. GENERAL: Older white female in the ER in no acute distress but she feels ill. HEENT EXAM: No jaundice. No oral lesions. No cervical or supraclavicular lymphadenopathy. HEART: Has a regular rate. LUNGS: Clear to auscultation and percussion bilaterally. BREASTS: Without palpable mass. ABDOMEN: She has a well-healing midline incision. Abdomen might be slightly distended but not tightly. She is tender in the right lower quadrant to palpation. There is no palpable mass. She did have some right-sided costovertebral tenderness. RECTAL/VAGINAL: Exams were not performed. EXTREMITIES: She does have palpable femoral pulses. She has mild peripheral edema. NEUROLOGICAL: She has no focal deficit. LAB: Her white blood cell count is 14.6, hematocrit 39%. Electrolytes are within normal limits as is her liver function tests. CT scan of her abdomen and pelvis shows inflammation in the right lower quadrant near the anastomosis status post right hemicolectomy. She also has a 5 cm ovarian cyst which appears to be simple. PLAN: Because of her abdominal pain and CT findings with an elevated white blood cell count status post surgery, she will be admitted to Dr. Ronaldo Bradshaw. We will begin IV fluids and IV Zosyn. I will begin Lovenox. Will recheck her white blood cell count in the morning and I will notify Dr. Luong of her admission. I discussed her care with her in the emergency department. cc: Allie Perales MD
[2016-10-25] MEDS: MORPHINE IV PRN (21:39)
[2016-10-25] MEDS: ZOSYN 3.375 GM in NS 50 ML IV SCH (21:39)
[2016-10-25] MEDS: TYLENOL PO PRN (21:40)
[2016-10-26] MEDS: MORPHINE IV PRN ×6 (01:08→22:50)
[2016-10-26] MEDS: ZOSYN 3.375 GM in NS 50 ML IV SCH ×4 (04:14→20:06)
[2016-10-26 06:04] LABS: MANUAL DIFF NEEDED? NO
[2016-10-26 06:11] LABS: BASO% 0.2 % (0.0-0.8); EOS# 0.03 X1000 (0.0-0.7); EOS% 0.2 % (0.0-10.0); HEMATOCRIT 38.1 % (37.0-47.0); HEMOGLOBIN 12.2 g/dL (12.0-16.0); IMM GRAN# 0.05 X1000 (0.0-0.04); IMM GRAN% 0.3 % (0.0-0.5); LYMPH# 1.01 X1000 (1.2-3.4); LYMPH% 6.5 % (20.5-51.1); MCH 27.4 PG (27-31); MCV 85.6 FL (81-99); MONO# 1.58 X1000 (0.11-0.59); MONO% 10.2 % (1.7-9.3); MPV 10.3 FL (7.4-10.4); NEUT% 82.6 % (42.2-75.2); PLT 470 X1000 (130-400); RBC 4.45 XMIL (4.2-5.4)
[2016-10-26 07:02] LABS: AGAP 14; BUN 6 mg/dL (8-22); CALCIUM 8.9 mg/dL (8.8-10.2); CHLORIDE 98 mmol/L (98-107); COSMO 275; POTASSIUM 4.1 mmol/L (3.5-5.1); SODIUM 137 mmol/L (136-145); TCO2 25 mmol/L (25-35)
[2016-10-26] MEDS: LOVENOX SUBQ SCH (09:12)
[2016-10-26] MEDS: LR 1,000 ML IV SCH ×3 (10:31→20:04)
[2016-10-26] MEDS: ROBAXIN 1,000 MG in NS 50 ML IV SCH ×4 (11:00→22:48)
--- NOTE | 2016-10-26 11:57 | PROGRESS NOTE ---
DATE: 10/26/2016 SUBJECTIVE: She is feeling a little bit better. She is still having some spasmodic intermittent pain in the right side, but she was up in a chair getting a bath and brushing her teeth in bed this morning. OBJECTIVE: Overnight. No fevers. No tachycardia. Temperature is 97.5 this morning, pulse 83, blood pressure 156/56, oxygen saturation 97% on 2 L nasal cannula. No nausea. She had 950 of urine and is tolerating some clear liquids without increasing pain. LABORATORY DATA: White count stable at 15. Hematocrit also remains elevated at 38. Platelets are elevated at 470. ASSESSMENT AND PLAN: This is a 71-year-old female, status post right colectomy three weeks ago who presents with right-sided abdominal pain. She does have chronic pain. She does have leukocytosis. I suspect she is a little dehydrated. She over did, lifting quite a lot of heavy things, working hard at her house on Tuesday as she was moving, and I worry she may have overdone things. I do not see obvious leak on her CT scan as far as air fluid. There is expected postoperative stranding but she is very tender on the side of her abdomen. I do not see any diffuse peritonitis. In the meantime, we will continue hydration, clear liquids , and IV antibiotics and observation. I do not think her exam is any worse today. I have also re- initiated IV muscle relaxants as it is possible some of this is musculoskeletal in nature but will continue to watch her closely. If she were to deteriorate at all, we will need to re-explore her, and I have discussed this matter that colostomy would be higher in the setting of re-operation, and she understands this possibility. Otherwise, she is on prophylactic Lovenox. Will start PPI. I encouraged her to stay out of bed as much as possible today. cc: MD Allie Garcia MD [facility]
[2016-10-26] MEDS: KLONOPIN PO SCH ×2 (13:03→20:02)
[2016-10-26] MEDS: MYSOLINE PO SCH ×3 (13:09→20:02)
[2016-10-27] MEDS: ZOSYN 3.375 GM in NS 50 ML IV SCH ×4 (04:00→21:20)
[2016-10-27] MEDS: LR 1,000 ML IV SCH ×4 (04:04→16:54)
[2016-10-27] MEDS: ROBAXIN 1,000 MG in NS 50 ML IV SCH ×4 (05:36→22:48)
[2016-10-27] MEDS: PRILOSEC PO SCH ×2 (05:37→06:17)
[2016-10-27] MEDS: SYNTHROID PO SCH ×2 (05:37→06:16)
[2016-10-27] MEDS: CYMBALTA PO SCH (08:26)
[2016-10-27] MEDS: MYSOLINE PO SCH ×4 (08:26→21:20)
[2016-10-27] MEDS: LOVENOX SUBQ SCH (08:26)
[2016-10-27] MEDS: KLONOPIN PO SCH ×3 (08:26→21:24)
[2016-10-27 09:31] LABS: MANUAL DIFF NEEDED? NO
[2016-10-27 09:34] LABS: BASO% 0.2 % (0.0-0.8); EOS# 0.08 X1000 (0.0-0.7); EOS% 0.6 % (0.0-10.0); HEMATOCRIT 39.9 % (37.0-47.0); HEMOGLOBIN 12.7 g/dL (12.0-16.0); IMM GRAN# 0.03 X1000 (0.0-0.04); IMM GRAN% 0.2 % (0.0-0.5); LYMPH# 0.84 X1000 (1.2-3.4); LYMPH% 6.2 % (20.5-51.1); MCH 27.3 PG (27-31); MCHC 31.8 g/dL (33-37); MCV 85.6 FL (81-99); MONO# 1.27 X1000 (0.11-0.59); MONO% 9.4 % (1.7-9.3); MPV 10.8 FL (7.4-10.4); NEUT% 83.4 % (42.2-75.2); PLT 514 X1000 (130-400); RBC 4.66 XMIL (4.2-5.4)
[2016-10-27 11:01] LABS: AGAP 14; BUN 3 mg/dL (8-22); CHLORIDE 97 mmol/L (98-107); COSMO 272; POTASSIUM 3.5 mmol/L (3.5-5.1); SODIUM 136 mmol/L (136-145); TCO2 25 mmol/L (25-35)
[2016-10-27] MEDS ORDERED: LR 1,000 ML IV SCH (11:08)
[2016-10-27] MEDS: MORPHINE IV PRN ×2 (15:05→21:22)
--- NOTE | 2016-10-27 16:53 | Diag Imaging Result Doc PS360 ---
EXAM: CHEST-PORTABLE HISTORY: crackles and wheezes TECHNIQUE: AP portable upright at 1638 COMMENT: The inspiration is less optimal than on 08/29/2015. The possibility of subsegmental atelectasis is suggested. Otherwise has been no significant change. IMPRESSION: Bibasilar atelectasis. Electronically signed by Patrick Fierro 10/27/2016 4:51 PM
[2016-10-27] MEDS: FLONASE NAS SCH (21:22)
[2016-10-28] MEDS: ZOSYN 3.375 GM in NS 50 ML IV SCH ×4 (02:29→20:01)
[2016-10-28] MEDS: TYLENOL PO PRN ×2 (02:29→22:15)
[2016-10-28] MEDS: PRILOSEC PO SCH (06:27)
[2016-10-28] MEDS: SYNTHROID PO SCH (06:27)
[2016-10-28] MEDS: ROBAXIN 1,000 MG in NS 50 ML IV SCH ×4 (06:56→23:46)
[2016-10-28] MEDS: CYMBALTA PO SCH (09:00)
[2016-10-28] MEDS: MYSOLINE PO SCH ×4 (09:00→20:01)
[2016-10-28] MEDS: LOVENOX SUBQ SCH (09:00)
[2016-10-28] MEDS: KLONOPIN PO SCH ×3 (09:00→20:01)
[2016-10-28] MEDS: LR 1,000 ML IV SCH (12:03)
--- NOTE | 2016-10-28 15:10 | PROGRESS NOTE ---
DATE: 10/28/2016 SUBJECTIVE: The patient was seen both on 10/27/2016 and 10/28/2016 unintentionally. I forgot to leave a note yesterday. However, yesterday she was feeling better. Pain was improving. She has become more mobile and had a bowel movement. She was tolerating clear liquids. Today, she states that her pain has resolved. She required no pain medicine overnight per the nurse. She has been ambulating. Her strength better. Shaw is out. She is voiding. She had another bowel movement. She is tolerating clear liquids. She is more hungry. PHYSICAL EXAMINATION: No fevers overnight. Pulse has been in the 80s. Blood pressure 166/64, oxygen saturation 97% on room air. General: She is alert in no acute distress. Abdomen soft, nontender, nondistended. There is no lower extremity edema. Cardiovascular: Normal rate. Regular rhythm. LABORATORY DATA: I reviewed her labs yesterday. White count is down to 13. Hematocrit 39. Creatinine is 0.5. Glucose 157. No labs today. ASSESSMENT AND PLAN: A 71-year-old female admitted with abdominal pain after right colon. No obvious signs of leak or abscess, but we are treating her for possibly a subclinical abscess or inflammation surrounding her anastomosis. Clinically, she has dramatically improved. There is no more pain. It is also possible that this was a musculoskeletal-type pain that was contributing, although this does not explain her leukocytosis. In the meantime, she is participating well in pulmonary toileting and physical therapy. We will continue to monitor. If her white count is normal tomorrow, I think we can talk about letting her go home. We will continue Zosyn for now. Her fluids are 50; we will keep this going. Lovenox and her PPI are ordered as well. I am going to advance her diet to soft with Ensure supplementation today. cc: MD Allie Garcia MD
[2016-10-28] MEDS: FLONASE NAS SCH (20:02)
[2016-10-29] MEDS: ZOSYN 3.375 GM in NS 50 ML IV SCH ×2 (03:32→10:22)
[2016-10-29] MEDS: SYNTHROID PO SCH ×2 (05:49→06:13)
[2016-10-29] MEDS: TYLENOL PO PRN (05:49)
[2016-10-29] MEDS: ROBAXIN 1,000 MG in NS 50 ML IV SCH ×2 (05:49→10:36)
[2016-10-29] MEDS: PRILOSEC PO SCH ×2 (05:49→06:13)
[2016-10-29 06:15] LABS: BASO% 0.4 % (0.0-0.8); EOS# 0.23 X1000 (0.0-0.7); EOS% 2.9 % (0.0-10.0); HEMATOCRIT 35.9 % (37.0-47.0); HEMOGLOBIN 11.6 g/dL (12.0-16.0); LYMPH# 1.24 X1000 (1.2-3.4); LYMPH% 15.4 % (20.5-51.1); MANUAL DIFF NEEDED? YES; MCH 27.4 PG (27-31); MCHC 32.3 g/dL (33-37); MCV 84.7 FL (81-99); MONO# 0.96 X1000 (0.11-0.59); MONO% 11.9 % (1.7-9.3); MPV 10.6 FL (7.4-10.4); NEUT% 69.4 % (42.2-75.2); PLT 545 X1000 (130-400); RBC 4.24 XMIL (4.2-5.4)
[2016-10-29 06:31] LABS: AGAP 17; BUN 3 mg/dL (8-22); CALCIUM 9.2 mg/dL (8.8-10.2); CHLORIDE 97 mmol/L (98-107); COSMO 277; POTASSIUM 3.7 mmol/L (3.5-5.1); SODIUM 140 mmol/L (136-145); TCO2 26 mmol/L (25-35)
[2016-10-29 07:02] LABS: BANDS 4 % (0-1); LYMPHS 12 % (21-51); MONO 6 % (1-9)
[2016-10-29] MEDS: LOVENOX SUBQ SCH (10:21)
[2016-10-29] MEDS: CYMBALTA PO SCH (10:21)
[2016-10-29] MEDS: MYSOLINE PO SCH ×2 (10:22→12:43)
[2016-10-29] MEDS: FLONASE NAS SCH (10:26)
[2016-10-29] MEDS: KLONOPIN PO SCH ×2 (10:36→12:43)
--- NOTE | 2016-10-29 11:07 | DISCHARGE SUMMARY ---
ADMISSION DATE: 10/25/2016 DISCHARGE DATE: 10/29/2016 ADMISSION DIAGNOSES: 1. Recent lower gastrointestinal bleed secondary to an arteriovenous malformation of the right colon, status post right colectomy. 2. Abdominal pain with leukocytosis. DISCHARGE DIAGNOSES: 1. Recent lower gastrointestinal bleed secondary to an arteriovenous malformation of the right colon, status post right colectomy. 2. Abdominal pain with leukocytosis. PROCEDURE PERFORMED: None. CONSULTANTS: None. HISTORY OF PRESENT ILLNESS: This is a 71-year-old female who was admitted a couple of weeks ago with a massive lower GI bleed. She underwent a right colectomy for colonic AVMs on 10/05/2016. She was ultimately discharged on 10/11/2016 and was doing very well for approximately 2 weeks when she developed acute onset right-sided abdominal pain after lifting several heavy boxes. CT scan showed some postoperative changes but no obvious abscess or free air intraabdominally. She did have a white count but no fevers. HOSPITAL COURSE: She was admitted to my service and was continued on antibiotics. She was aggressively rehydrated. She did appear quite hemoconcentrated. Over the course of 48 hours, her pain resolved. She had had several bowel movements which were normal, which she had not had up to this point. She was tolerating a GI soft diet, was progressing with physical therapy, but was quite debilitated and weak. She says she has a hard time and limited care at home, and it was felt that ongoing rehab is indicated at home. She ultimately was not requiring IV pain medication. She had no fevers or tachycardia or no instability during her hospital course and was felt safe for discharge to rehab facility. MEDICAL HISTORY: 1. Right colon arteriovenous malformations causing lower GI bleed. 2. She does have chronic pain. 3. History of CVA. 4. Migraine headaches. 5. Osteopenia. 6. Right ovarian cyst. SURGICAL HISTORY: 1. Hysterectomy. 2. Cervical spine operation. 3. Right colectomy. SOCIAL HISTORY: No tobacco, alcohol, or drugs. FAMILY HISTORY: Negative for cancer. PHYSICAL EXAM ON THE DAY OF HER DISCHARGE: Vital signs: Temperature was 98.1, pulse 68, blood pressure 159/98. She was 98% on room air. General: She is alert, in no acute distress. Cardiovascular: Normal rate, regular rhythm. Pulmonary: On room air. Abdomen: Soft, nontender, nondistended. Midline incision is healing well. Her Steri-Strips are in place with no cellulitis. Integumentary: Warm and dry without any lower extremity edema. LABORATORY DATA ON THE DAY OF DISCHARGE: Her white count was 8, hematocrit was 35, platelets were 554. Creatinine 0.5, glucose 117. DISPOSITION: To [facility] today. DISCHARGE MEDICATIONS: 1. She can continue taking her home medications and I have given her a prescription for Augmentin for a course of 7 days, 500 mg t.i.d. 2. I have also given her a prescription for [place] to take as needed for pain. 3. She takes Klonopin 0.5 mg t.i.d. 4. Duloxetine 30 mg p.o. daily. 5. Flonase one to two sprays per nasal daily. 6. Levothyroxine 175 mcg p.o. each morning. 7. Omeprazole 40 mg p.o. daily. 8. Primidone 40 mg p.o. four times daily. 9. Carisoprodol 350 mg t.i.d. FOLLOWUP APPOINTMENTS: 1. Follow up with Ronaldo Luong's office in the next one to two weeks for recheck and wound check. 2. Dr. Fountain is her primary physician. She should touch base with him in the next week or two. DISCHARGE DIET: I have encouraged her to stay on a GI soft diet. ACTIVITY: As tolerated. She should avoid lifting anything heavier than 10 pounds but otherwise can work as tolerated with Physical Therapy. DISCHARGE INSTRUCTIONS: She will call if she develops fevers, worsening abdominal pain, nausea, vomiting, change in her bowel habits, or bleeding. Otherwise, the only changes to her current medical regimen will be a 7-day course of Augmentin 500 mg t.i.d. cc: MD Allie Garcia MD
[2016-10-29 12:11] VITALS: BP 170/72
--- NOTE | 2016-10-29 13:51 | Diag Imaging Result Doc PS360 ---
CHEST-1 VIEW - 10/29/2016 INDICATION: rehab TECHNIQUE: COMPARISON: 10/27/2016 FINDINGS: There is decrease in the linear atelectasis at the lung bases. No focal infiltrates, pneumothorax, or pleural effusion. Heart size is grossly normal. IMPRESSION: No active disease. Electronically signed by Jean Marie Portillo 10/29/2016 1:42 PM
== END 2016-10-29 14:22 ==
LOC: SUPCPDRO → ED 15:25 → 4N 20:02
PROVIDERS: ADMIT Surgery; ATTEND Surgery

== ENCOUNTER 2016-11-13 15:51 | Inpatient (IN) ==
[2016-11-13 17:09] LABS: INR 0.99; PROTIME 10.4 Seconds (9.2-11.7); PTT 25.7 Seconds (22.0-36.0)
[2016-11-13 17:19] LABS: AGAP 11; ALKALINE PHOSPHATASE 92 U/L (32-104); BUN 9 mg/dL (8-22); CALCIUM 9.2 mg/dL (8.8-10.2); CHLORIDE 97 mmol/L (98-107); COSMO 273; GOT 16 U/L (10-30); GPT 28 U/L (10-36); POTASSIUM 4.4 mmol/L (3.5-5.1); SODIUM 137 mmol/L (136-145); TCO2 29 mmol/L (25-35); TOTAL BILIRUBIN 0.13 mg/dL (0.20-1.00); TOTAL PROTEIN 6.4 g/dL (6.3-8.3)
[2016-11-13 17:34] LABS: BASO% 0.5 % (0.0-0.8); EOS# 0.03 X1000 (0.0-0.7); EOS% 0.3 % (0.0-10.0); HEMATOCRIT 24.2 % (37.0-47.0); IMM GRAN# 0.03 X1000 (0.0-0.04); IMM GRAN% 0.3 % (0.0-0.5); LYMPH# 0.77 X1000 (1.2-3.4); LYMPH% 7.4 % (20.5-51.1); MANUAL DIFF NEEDED? NO; MCH 27.2 PG (27-31); MCHC 28.9 g/dL (33-37); MCV 94.2 FL (81-99); MONO# 0.52 X1000 (0.11-0.59); MPV 9.6 FL (7.4-10.4); NEUT% 86.5 % (42.2-75.2); PLT 721 X1000 (130-400); RBC 2.57 XMIL (4.2-5.4)
[2016-11-13] MEDS ORDERED: NS 500 ML ONE (18:05)
[2016-11-13] MEDS ORDERED: ZOFRAN IV PRN (19:57)
[2016-11-13] MEDS: NORCO-7.5 PO PRN (20:30)
[2016-11-13] MEDS: SOMA PO SCH (21:55)
[2016-11-13] MEDS: CARAFATE PO SCH (21:55)
[2016-11-13] MEDS: PROTONIX IV SCH (21:55)
[2016-11-13] MEDS: AMBIEN PO SCH (21:55)
[2016-11-14] MEDS: SOMA PO SCH ×3 (04:16→22:49)
[2016-11-14] MEDS: NORCO-7.5 PO PRN ×2 (04:30→11:24)
[2016-11-14] MEDS: SYNTHROID PO SCH (06:04)
[2016-11-14 06:08] LABS: MANUAL DIFF NEEDED? NO
[2016-11-14 06:35] LABS: BASO% 0.6 % (0.0-0.8); EOS% 1.2 % (0.0-10.0); HEMATOCRIT 29.8 % (37.0-47.0); HEMOGLOBIN 9.3 g/dL (12.0-16.0); LYMPH# 1.59 X1000 (1.2-3.4); LYMPH% 19.2 % (20.5-51.1); MCH 28.4 PG (27-31); MCHC 31.2 g/dL (33-37); MCV 91.1 FL (81-99); MONO# 0.81 X1000 (0.11-0.59); MONO% 9.8 % (1.7-9.3); MPV 9.8 FL (7.4-10.4); NEUT% 69.2 % (42.2-75.2); PLT 592 X1000 (130-400); RBC 3.27 XMIL (4.2-5.4)
[2016-11-14 06:38] LABS: IRON SATURATION 8 %; TIBC 315 ug/dL; TOTAL IRON 25 ug/dL (49-151); UNBOUND IRON 290 ug/dL (112-346)
[2016-11-14 06:39] LABS: AGAP 10; ALBUMIN 3.6 g/dL (3.5-5.0); ALKALINE PHOSPHATASE 83 U/L (32-104); BUN 8 mg/dL (8-22); CALCIUM 8.3 mg/dL (8.8-10.2); CHLORIDE 99 mmol/L (98-107); COSMO 275; GOT 13 U/L (10-30); GPT 21 U/L (10-36); POTASSIUM 4.5 mmol/L (3.5-5.1); SODIUM 139 mmol/L (136-145); TCO2 30 mmol/L (25-35); TOTAL BILIRUBIN 0.28 mg/dL (0.20-1.00); TOTAL PROTEIN 5.9 g/dL (6.3-8.3)
[2016-11-14 06:52] LABS: FERRITIN 75 ng/mL (13-150)
[2016-11-14] MEDS: KLONOPIN PO SCH ×2 (08:22→17:26)
[2016-11-14] MEDS: CARAFATE PO SCH ×4 (08:22→22:49)
[2016-11-14] MEDS: CYMBALTA PO SCH (08:22)
[2016-11-14] MEDS: PREDNISONE PO SCH (08:22)
[2016-11-14] MEDS: PROTONIX IV SCH ×2 (12:46→22:48)
[2016-11-14] MEDS: NS 1,000 ML IV SCH ×2 (17:26→17:27)
[2016-11-14] MEDS ORDERED: DULCOLAX PO ONE (18:57)
[2016-11-14] MEDS ORDERED: MIRALAX PO ONE (18:57)
[2016-11-14] MEDS: AMBIEN PO SCH (22:48)
[2016-11-15] MEDS: KLONOPIN PO SCH ×3 (03:30→16:56)
[2016-11-15] MEDS: SOMA PO SCH ×3 (03:46→23:48)
[2016-11-15] MEDS ORDERED: DULCOLAX PO ONE (04:00)
[2016-11-15] MEDS: NS 1,000 ML IV SCH ×2 (05:51→13:39)
[2016-11-15] MEDS: SYNTHROID PO SCH (06:13)
[2016-11-15 06:40] LABS: MANUAL DIFF NEEDED? NO
[2016-11-15 06:58] LABS: BASO% 0.3 % (0.0-0.8); EOS# 0.13 X1000 (0.0-0.7); EOS% 0.9 % (0.0-10.0); HEMATOCRIT 34.6 % (37.0-47.0); HEMOGLOBIN 10.8 g/dL (12.0-16.0); IMM GRAN# 0.04 X1000 (0.0-0.04); IMM GRAN% 0.3 % (0.0-0.5); LYMPH# 1.31 X1000 (1.2-3.4); LYMPH% 9.4 % (20.5-51.1); MCH 28.2 PG (27-31); MCHC 31.2 g/dL (33-37); MCV 90.3 FL (81-99); MONO# 1.26 X1000 (0.11-0.59); MPV 9.8 FL (7.4-10.4); NEUT% 80.1 % (42.2-75.2); PLT 679 X1000 (130-400); RBC 3.83 XMIL (4.2-5.4)
[2016-11-15 07:16] LABS: AGAP 14; BUN 6 mg/dL (8-22); CALCIUM 9.5 mg/dL (8.8-10.2); CHLORIDE 100 mmol/L (98-107); COSMO 272; POTASSIUM 3.6 mmol/L (3.5-5.1); SODIUM 137 mmol/L (136-145); TCO2 23 mmol/L (25-35)
[2016-11-15] MEDS: SODIUM CHLORIDE 0.9% INJ SCH (07:45)
[2016-11-15] MEDS: PROTONIX IV SCH ×2 (07:45→23:47)
[2016-11-15] MEDS ORDERED: DIPRIVAN 1% ONE (11:40)
[2016-11-15] MEDS: CARAFATE PO SCH ×4 (13:39→23:48)
[2016-11-15] MEDS: PREDNISONE PO SCH (13:40)
[2016-11-15] MEDS: CYMBALTA PO SCH (13:41)
[2016-11-15] MEDS: FOLIC ACID PO SCH (13:41)
[2016-11-15] MEDS: NORCO-7.5 PO PRN (13:56)
[2016-11-15] MEDS: ICAR-C PO SCH (23:48)
[2016-11-15] MEDS: AMBIEN PO SCH (23:48)
[2016-11-16] MEDS: NS 1,000 ML IV SCH (01:17)
[2016-11-16] MEDS: KLONOPIN PO SCH ×2 (01:17→09:03)
[2016-11-16] MEDS: SYNTHROID PO SCH (06:24)
[2016-11-16] MEDS: SOMA PO SCH ×2 (06:24→11:30)
[2016-11-16 06:53] LABS: MANUAL DIFF NEEDED? NO
[2016-11-16 07:09] LABS: BASO% 0.4 % (0.0-0.8); EOS# 0.18 X1000 (0.0-0.7); EOS% 2.5 % (0.0-10.0); HEMATOCRIT 34.4 % (37.0-47.0); HEMOGLOBIN 10.6 g/dL (12.0-16.0); LYMPH# 1.24 X1000 (1.2-3.4); LYMPH% 17.3 % (20.5-51.1); MCH 28.3 PG (27-31); MCHC 30.8 g/dL (33-37); MCV 91.7 FL (81-99); MONO# 0.79 X1000 (0.11-0.59); MPV 9.6 FL (7.4-10.4); NEUT% 68.8 % (42.2-75.2); PLT 625 X1000 (130-400); RBC 3.75 XMIL (4.2-5.4)
[2016-11-16 07:47] LABS: AGAP 12; BUN 4 mg/dL (8-22); CALCIUM 9.2 mg/dL (8.8-10.2); CHLORIDE 105 mmol/L (98-107); COSMO 277; POTASSIUM 4.3 mmol/L (3.5-5.1); SODIUM 140 mmol/L (136-145); TCO2 23 mmol/L (25-35)
[2016-11-16] MEDS ORDERED: CENTRUM SILVER PO SCH (09:00)
[2016-11-16] MEDS: ICAR-C PO SCH (09:03)
[2016-11-16] MEDS: SODIUM CHLORIDE 0.9% INJ SCH (09:03)
[2016-11-16] MEDS: CARAFATE PO SCH ×2 (09:03→11:30)
[2016-11-16] MEDS: PROTONIX IV SCH (09:03)
[2016-11-16] MEDS: PREDNISONE PO SCH (09:03)
[2016-11-16] MEDS: FOLIC ACID PO SCH (09:04)
[2016-11-16] MEDS: CYMBALTA PO SCH (09:04)
[2016-11-16 11:39] VITALS: BP 106/57
== END 2016-11-16 13:01 | disposition home or self-care (01) ==
LOC: ED 15:51 → SUATTDRO 20:26 → 4N 20:26
PROVIDERS: ATTEND Internal Medicine